=== PATIENT | male | born 1965 | race Caucasian/White ===

== ENCOUNTER 2022-03-14 18:03 | Inpatient (IN) ==
--- NOTE | 2022-03-14 18:20 | ED Triage Note ---
Date of Service March 14, 2022 History of Present Illness This patient was briefly evaluated while in triage. An abbreviated physical exam was performed. 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 Physical Exam VITALS: Vitals are noted on the nurse's note and reviewed by myself. GENERAL: This is a 56-year-old male, in no acute distress, well-developed well- nourished. SKIN: The skin was without rashes. NECK: Supple without nuchal rigidity. HEART: Regular rate and rhythm without murmurs gallops or rubs. LUNGS: Clear to auscultation bilaterally without wheezes, rales or rhonchi. NEURO: Patient was alert and oriented to person place and time. Initial orders for labs and / or imaging were placed and patient was placed in the waiting area until a bed is available. Please see further documentation for the full ED course.
[2022-03-14 19:02] LABS: Basophils # (auto) 0.04 K/uL (0-0.2); Basophils % (auto) 0.4 %; Eosinophils # (auto) 0.03 K/uL (0-0.50); Eosinophils % (auto) 0.3 %; Hematocrit (blood only) 42.4 % (40.1-51.0); Hemoglobin 14.4 g/dl (14.0-18.0); Immature Granulocytes # (auto) 0.05 K/uL (0.00-0.02); Immature Granulocytes % (auto) 0.5 %; Lymphocytes # (auto) 1.75 K/uL (1.2-3.4); Lymphocytes % (auto) 19.1 %; Mean Corpuscular Hemoglobin 32.3 pg (25.0-34.0); Mean Corpuscular Volume 95.1 fL (80.0-100.0); Mean Platelet Volume 9.3 fL (9.4-12.4); Monocytes # (auto) 1.09 K/uL (0.24-0.82); Monocytes % (auto) 11.9 %; Neutrophils % (auto) 67.8 %; Platelet Count 180 K/uL (130-400); RDW Coefficient of Variation 14.8 % (11.5-14.5); RDW Standard Deviation 51.4 fL (36.4-46.3); Red Blood Count 4.46 M/uL (4.63-6.08); White Blood Count 9.16 K/ul (4.8-10.8)
--- NOTE | 2022-03-14 19:08 | CT Scan Report ---
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 Acutely altered mental status TECHNIQUE: Multiple axial CT images of the head were obtained without contrast. A dose lowering tech nique was utilized adhering to the principles of ALARA. CT DOSE: 884.08 mGy.cm COMPARISON: None. FINDINGS: There is dilation of the lateral and third ventricles. Transverse dimension of the lateral ventricles measures up to 5 cm. The fourth ventricle appears normal. Involutional changes. A left frontal appro ach ventriculostomy catheter distal tip overlies the right lateral ventricle. White matter hypodensit ies are noted along with encephalomalacia of the right greater than left frontal lobes. Calcification s are noted within the lentiform nuclei. Extra-axial calcifications adjacent to the right frontal lob e. No acute intracranial hemorrhage, midline shift or acute territorial infarct. Extra-axial collecti ons, largest at the level of the frontal lobes measure up to 4 mm bilaterally containing fluid and fa t attenuation. 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 Right frontal craniotomy changes. The paranasal sinuses, mastoid air cells, and middle ear cavities are clear. IMPRESSION: 1. No acute intracranial hemorrhage or midline shift. 2. A ventriculostomy catheter is in place terminating within the right lateral ventricle. 3. There is dilation of the lateral and third ventricles which should be correlated with prior imagin g to exclude hydrocephalus. 4. Chronic subdural hematomas versus hygromas containing macroscopic fat. 5. Prior right frontal craniotomy. ACT 112: Negative or not required by law. The above report was generated using voice recognition software. It may contain grammatical, syntax o r spelling errors. Electronically signed by: Camilo Salgado M.D. 03/14/2022 7:05 PM
[2022-03-14 19:28] LABS: BUN Creatinine Ratio 13.9 (10-20); Bilirubin,Total 0.9 mg/dl (0.2-1.0); Calcium 9.5 mg/dl (8.5-10.1); Creatinine Clr Calc Pharmacy 100.8 ml/min; Est GFR (African American) 88.5 ml/min; Est GFR (Non-African American) 76.3 ml/min; Globulin 2.5 gm/dl (2.5-4.0); Potassium 4.3 mmol/L (3.5-5.1); Total Protein 7.5 gm/dl (6.0-8.3)
[2022-03-14] MEDS ORDERED: SODIUM CHLORIDE 0.9% 1000ML 1,000 ML IV ONE (21:20)
--- NOTE | 2022-03-14 21:29 | Emergency Department Note ---
Impression & Plan Bilateral leg pain, Pedal edema, DVT (deep venous thrombosis), S/P ACCOUNT ADMINISTRATOR shunt ED Provider Note NAME: MATT LIMON AGE: 56 SEX: M : 1965 ARRIVES VIA: Walk-In INFORMANT: [Patient][family] ED PROVIDER(S): [John Kim MD] CHIEF COMPLAINT: Leg pain HISTORY OF PRESENT ILLNESS: The patient is a 56-year-old male who has had about 24 hours of bilateral leg and thigh pain. He feels okay when he still but when he goes to do things, he has moderate discomfort. He has to sit down. Things started last night and they have continued today. He has not had fever, no cough or congestion or shortness of breath. No chest pain. No headache. The patient does have a history of DVT, he has a Virgil filter in, he is not anticoagulated. The patient has had 2 brain tumors surgically removed. He has a ACCOUNT ADMINISTRATOR shunt in place. The patient is scheduled for some EEGs this week. These have been ordered by his neurologist. As per the family, the patient has had some cognitive decline in the last month. This is why the EEGs are being performed. The neurologist mentioned the possibility of subclinical seizures. REVIEW OF SYSTEMS: See HPI for pertinent positives and negatives. A total of ten systems were reviewed and were otherwise negative. PMHx/PSHx: See Below SOCIAL HISTORY: See Below. PHYSICAL EXAM: GENERAL: Patient is in no acute distress. HEENT: Mucous membranes moist, no nasal congestion, no scleral icterus. NECK: No stridor, no adenopathy, no meningismus, trachea is midline. LUNGS: Clear to auscultation bilaterally, no wheeze, no rhonchi, breath sounds equal. HEART: Without murmurs gallops or rubs, regular rate and rhythm. ABDOMEN: Soft, nontender, bowel sounds positive, no peritonitis. EXTREMITIES: No cyanosis. The patient does have mild bilateral pedal edema. There are some chronic skin changes, no erythema NEUROLOGIC: Oriented x 3, no acute motor or sensory deficits, no focal weakness. SKIN: No rash, no jaundice, no diaphoresis. DIFFERENTIAL DIAGNOSIS: Electrolyte imbalance, anemia, infection, seizure, liver or renal failure, cellulitis, DVT, hydronephrosis, among others. EMERGENCY DEPARTMENT COURSE/PROCEDURES: ECG: Indication was weakness. The ECG shows a normal sinus rhythm with a rate of 84. There are inverted T waves seen across the anterior and lateral leads. Some LVH is present. There is no ST elevation, no PVCs. There is an old inferior infarct. The QTc is 434. No old ECGs available for comparison. Continuous Cardiac Monitoring: An order was placed for continuous cardiac monitoring. The monitor shows a rate of 91 with normal sinus rhythm. MEDICAL DECISION MAKING: There is no leukocytosis or concerning anemia. There is a normal platelet count. No renal failure or significant electrolyte abnormality. No concerning liver enzyme elevation. ECG shows a normal sinus rhythm with some nonspecific ST and T wave changes. No old ECGs to use for comparison. Cardiac enzyme testing x1 is not consistent with acute cardiac injury. The patient appears to be in a euthyroid state. COVID test returned negative. Brain CT showed no acute bleed or mass-effect. His ACCOUNT ADMINISTRATOR shunt was in position. Some fullness to his ventricles was noted. Bilateral lower extremity ultrasound shows bilateral acute DVTs, some superficial clot was also seen. Patient presents with bilateral leg pain. He has bilateral DVTs. He has a complicated and extensive past history. He does have a Virgil filter in place but he will need anticoagulation for the DVTs found today. I did speak with Dr. Villalba of neurology. He felt that anticoagulation would be safe despite his previous neurologic issues. I spoke with the patient and his family, I spoke with the casework manager. The on- call hospitalist was consulted. Hospitalization is indicated. The patient was given a GI cocktail, oral Protonix and IV Pepcid. These meds were given for some heartburn he experienced during his stay. He was given a liter of IV saline for hydration. He received IV Zofran for nausea. Past Med/Surg History Medical History H/O astrocytoma Seizure disorder Surgical History History of brain surgery History of cholecystectomy Family History Mother Unknown family medical history Father Unknown family medical history from patient questionaire Social History Smoking Status: Former smoker Preferred Language: Chilean Feels Safe at Home: Yes Allergies Allergies Allergy/AdvReac Type Severity Reaction Status Date / Time Iodinated Contrast Media Allergy Unknown nausea and Verified 03/15/22 00:08 vomiting No Known Drug Allergies Allergy Unknown Verified 03/15/22 00:08 Home Meds Home Medications Medication Instructions Recorded Confirmed simvastatin 40 mg tablet 40 mg PO QAM 05/02/20 03/15/22 famotidine 40 mg tablet 40 mg PO QPM 03/15/22 03/15/22 Previous Rx's Medication Instructions Recorded lamotrigine 100 mg tablet,extended 100 mg PO BID #60 tabs 01/03/22 release 24 hr carbamazepine 200 mg 200 mg PO BID 90 days #180 caps 02/13/22 capsule,extended release [id number] carbamazepine 300 mg 300 mg PO BID 90 days #180 caps 02/13/22 capsule,extended release [id number] lamotrigine 200 mg tablet,extended 400 mg PO BID 90 days #360 tabs 02/13/22 release 24 hr lacosamide 50 mg tablet (Vimpat) 50 mg PO BID #60 tabs 02/17/22 Results & Data (ED) Vital Signs Vital Signs - 24 hr 03/14/22 18:13 03/14/22 22:41 03/15/22 01:36 Temperature 36.4 C L Temperature Source Temporal Artery Scan Pulse Rate 91 H Pulse Rate [Finger] 93 H 81 Respiratory Rate 16 15 18 Respiratory Effort / Characteristics Non-Labored Spontaneous Respiratory Depth Normal Blood Pressure 138/96 Blood Pressure [Left Radial Artery] 142/96 H 150/89 H Blood Pressure Mean 110 Blood Pressure Mean [Left Radial Artery] 111 109 Blood Pressure Position Sitting Blood Pressure Position [Left Radial Artery] Lying Pulse Oximetry 99 100 95 Oxygen Delivery Method Room Air Room Air Room Air Sepsis Recent Fever Within 48 Hours No Sepsis New/Unexplained Change in Mental Status No Sepsis Action Taken by Nursing No Action Required Home Medications Current Medication List: was personally reviewed by me Laboratory Data Attestation: I reviewed the patient's lab results. Result diagrams: 03/14/22 18:35 03/14/22 18:35 Lab Results 03/14/22 03/14/22 03/14/22 Range/Units 18:35 18:35 18:35 WBC 9.16 (4.8-10.8) K/ul RBC 4.46 L (4.63-6.08) M/uL Hgb 14.4 (14.0-18.0) g/dl Hct 42.4 (40.1-51.0) % MCV 95.1 (80.0-100.0) fL MCH 32.3 (25.0-34.0) pg MCHC 34.0 (32.0-36.0) g/dL RDW Std Deviation 51.4 H (36.4-46.3) fL RDW Coeff of Sudhir 14.8 H (11.5-14.5) % Plt Count 180 (130-400) K/uL MPV 9.3 L (9.4-12.4) fL Immature Gran % (Auto) 0.5 % Neut % (Auto) 67.8 % Lymph % (Auto) 19.1 % Claiborne % (Auto) 11.9 % Eos % (Auto) 0.3 % Baso % (Auto) 0.4 % Neut # (Auto) 6.20 (1.4-6.5) K/uL Lymph # (Auto) 1.75 (1.2-3.4) K/uL Cla[place]orne # (Auto) 1.09 H (0.24-0.82) K/uL Eos # (Auto) 0.03 (0-0.50) K/uL Baso # (Auto) 0.04 (0-0.2) K/uL Immature Gran # (Auto) 0.05 H (0.00-0.02) K/uL Sodium 137 (136-145) mmol/L Potassium 4.3 (3.5-5.1) mmol/L Chloride 98 (98-107) mmol/L Carbon Dioxide 29 (21-32) mmol/L Anion Gap 10 (3-11) BUN 15 (6-23) mg/dl Creatinine 1.08 (0.6-1.4) mg/dl Est Cr Clr Drug Dosing 100.8 ml/min Est GFR ( Amer) 88.5 ml/min Est GFR (Non-Af Amer) 76.3 ml/min BUN/Creatinine Ratio 13.9 (10-20) Glucose 96 (70-99(Fasting)) mg/dl Calcium 9.5 (8.5-10.1) mg/dl Magnesium 2.0 (1.7-2.4) mg/dl Total Bilirubin 0.9 (0.2-1.0) mg/dl AST 15 (13-39) U/L ALT 22 (7-52) U/L Alkaline Phosphatase 84 (34-104) U/L Troponin I High Sens (0-20) pg/ml Total Protein 7.5 (6.0-8.3) gm/dl Albumin 5.0 (3.4-5.0) gm/dl Globulin 2.5 (2.5-4.0) gm/dl Albumin/Globulin Ratio 2.0 (0.9-2) TSH 2.971 (0.300-4.500) uIu/ml SARS-CoV-2, RNA, NAAT (NEGATIVE) 03/14/22 03/14/22 Range/Units 18:35 23:48 WBC (4.8-10.8) K/ul RBC (4.63-6.08) M/uL Hgb (14.0-18.0) g/dl Hct (40.1-51.0) % MCV (80.0-100.0) fL MCH (25.0-34.0) pg MCHC (32.0-36.0) g/dL RDW Std Deviation (36.4-46.3) fL RDW Coeff of Sudhir (11.5-14.5) % Plt Count (130-400) K/uL MPV (9.4-12.4) fL Immature Gran % (Auto) % Neut % (Auto) % Lymph % (Auto) % Claiborne % (Auto) % Eos % (Auto) % Baso % (Auto) % Neut # (Auto) (1.4-6.5) K/uL Lymph # (Auto) (1.2-3.4) K/uL Cla[place]orne # (Auto) (0.24-0.82) K/uL Eos # (Auto) (0-0.50) K/uL Baso # (Auto) (0-0.2) K/uL Immature Gran # (Auto) (0.00-0.02) K/uL Sodium (136-145) mmol/L Potassium (3.5-5.1) mmol/L Chloride (98-107) mmol/L Carbon Dioxide (21-32) mmol/L Anion Gap (3-11) BUN (6-23) mg/dl Creatinine (0.6-1.4) mg/dl Est Cr Clr Drug Dosing ml/min Est GFR ( Amer) ml/min Est GFR (Non-Af Amer) ml/min BUN/Creatinine Ratio (10-20) Glucose (70-99(Fasting)) mg/dl Calcium (8.5-10.1) mg/dl Magnesium (1.7-2.4) mg/dl Total Bilirubin (0.2-1.0) mg/dl AST (13-39) U/L ALT (7-52) U/L Alkaline Phosphatase (34-104) U/L Troponin I High Sens 3.4 (0-20) pg/ml Total Protein (6.0-8.3) gm/dl Albumin (3.4-5.0) gm/dl Globulin (2.5-4.0) gm/dl Albumin/Globulin Ratio (0.9-2) TSH (0.300-4.500) uIu/ml SARS-CoV-2, RNA, NAAT NEGATIVE (NEGATIVE) Administered Medications Discontinued Medications Al Hydrox/Mg Hydrox/Simethicone (Gi Cocktail Ed Use) 1 dose PO ONE ONE Stop: 03/14/22 23:06 Last Admin: 03/14/22 23:40 Dose: 1 dose Documented By: MAURICE Famotidine (Famotidine 20 Mg Tab) 20 mg PO NOW ONE Stop: 03/14/22 23:06 Last Admin: 03/14/22 23:40 Dose: 20 mg Documented By: MAURICE Sodium Chloride (Nss 1000ml) 1,000 mls @ 999 mls/hr IV .Q1H1M ONE Stop: 03/14/22 22:20 Last Infusion: 03/15/22 01:32 Dose: 0 mls/hr Documented By: Admin: 03/14/22 23:43 Dose: 999 mls/hr Documented By: MAURICE Ioversol (Optiray 320 125ml) 120 ml IV ONCE ONE Stop: 03/15/22 00:45 Last Admin: 03/15/22 00:44 Dose: 120 ml Documented By: FIFI Ondansetron HCl (Ondansetron Inj 2 Mg/Ml 2 Ml Vial) 4 mg IV NOW STA Stop: 03/14/22 23:46 Last Admin: 03/14/22 23:59 Dose: 4 mg Documented By: MAURICE Pantoprazole Sodium (Pantoprazole 40 Mg Tab) 40 mg PO NOW STA Stop: 03/14/22 23:06 Last Admin: 03/14/22 23:40 Dose: 40 mg Documented By: MAURICE Imaging Data Radiologist's Impression: Venous Doppler Study 03/14/22 18:16 BILATERAL LOWER EXTREMITY VENOUS DOPPLER HISTORY: Acute pain and swelling of the lower legs B/l leg pain, hx dvt COMPARISON STUDY: None. FINDINGS: RIGHT: Occlusive/partially occlusive thrombi noted within the common femoral and upper aspect of the greater saphenous vein. Linear echogenic thrombus within the popliteal vein is likely chronic and appears to be partially occlusive. Reversal of flow noted within the profunda femoris. Possible chronic thrombi within the greater saphenous vein at the level of the thigh which is partially occlusive. Thrombus is also noted within the right iliac vein. LEFT: Partially occlusive thrombus noted within the common femoral vein and upper aspect of the greater saphenous vein. Linear echogenic nonocclusive/partially occlusive thrombi within the superficial femoral and popliteal veins, likely chronic. IMPRESSION: Bilateral deep and superficial venous thrombi as above. ACT 112: Negative or not required by law. Electronically signed by: Camilo Salgado M.D. 03/14/2022 10:[address] 03/14/22 18:19 CT head/brain wo con CLINICAL HISTORY: 56 years-old Male with Confusion, has ACCOUNT ADMINISTRATOR shunt. Acutely altered mental status TECHNIQUE: Multiple axial CT images of the head were obtained without contrast. A dose lowering technique was utilized adhering to the principles of ALARA. CT DOSE: 884.08 mGy.cm COMPARISON: None. FINDINGS: There is dilation of the lateral and third ventricles. Transverse dimension of the lateral ventricles measures up to 5 cm. The fourth ventricle appears normal. Involutional changes. A left frontal approach ventriculostomy catheter distal tip overlies the right lateral ventricle. White matter hypodensities are noted along with encephalomalacia of the right greater than left frontal lobes. Calcifications are noted within the lentiform nuclei. Extra-axial calcifications adjacent to the right frontal lobe. No acute intracranial hemorrhage, midline shift or acute territorial infarct. Extra-axial collections, largest at the level of the frontal lobes measure up to 4 mm bilaterally containing fluid and fat attenuation. 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 Right frontal craniotomy changes. The paranasal sinuses, mastoid air cells, and middle ear cavities are clear. IMPRESSION: 1. No acute intracranial hemorrhage or midline shift. 2. A ventriculostomy catheter is in place terminating within the right lateral ventricle. 3. There is dilation of the lateral and third ventricles which should be correlated with prior imaging to exclude hydrocephalus. 4. Chronic subdural hematomas versus hygromas containing macroscopic fat. 5. Prior right frontal craniotomy. ACT 112: Negative or not required by law. The above report was generated using voice recognition software. It may contain grammatical, syntax or spelling errors. Electronically signed by: Camilo Salgado M.D. 03/14/2022 7:05 PM Discharge Plan Visit Data Chief Complaint: Leg Injury/Pain Stated Complaint: TROUBLE WALKING, STANDING, LEG PAIN ED Provider: John Kim Discharge Problem: Bilateral leg pain, Pedal edema, DVT (deep venous thrombosis), S/P ACCOUNT ADMINISTRATOR shunt Patient Disposition: Admitted As Inpatient Condition: Fair Forms Stand Alone Forms: [facility] Prescriptions Prescriptions: No Action simvastatin 40 mg tablet 40 mg PO QAM lamotrigine 100 mg tablet extended release 24hr 100 mg PO BID Qty: 60 5RF lamotrigine 200 mg tablet extended release 24hr 400 mg PO BID 90 Days Qty: 360 0RF carbamazepine 200 mg capsule, ER multiphase 12 hr 200 mg PO BID 90 Days Qty: 180 0RF Rx Instructions: take along with 300mg capsule BID for a total of 500mg BID carbamazepine 300 mg capsule, ER multiphase 12 hr 300 mg PO BID 90 Days Qty: 180 0RF Rx Instructions: take along with 200mg capsule BID for a total of 500mg BID lacosamide [Vimpat] 50 mg tablet 50 mg PO BID Qty: 60 3RF famotidine 40 mg tablet 40 mg PO QPM Referrals Referrals: Shari Alarcon DO [Primary Care Provider] -
--- NOTE | 2022-03-14 22:56 | Ultrasound Report ---
BILATERAL LOWER EXTREMITY VENOUS DOPPLER HISTORY: Acute pain and swelling of the lower legs B/l leg pain, hx dvt COMPARISON STUDY: None. FINDINGS: RIGHT: Occlusive/partially occlusive thrombi noted within the common femoral and upper aspect of the greate r saphenous vein. Linear echogenic thrombus within the popliteal vein is likely chronic and appears t o be partially occlusive. Reversal of flow noted within the profunda femoris. Possible chronic thromb i within the greater saphenous vein at the level of the thigh which is partially occlusive. Thrombus is also noted within the right iliac vein. LEFT: Partially occlusive thrombus noted within the common femoral vein and upper aspect of the greater sap henous vein. Linear echogenic nonocclusive/partially occlusive thrombi within the superficial femoral and popliteal veins, likely chronic. IMPRESSION: Bilateral deep and superficial venous thrombi as above. ACT 112: Negative or not required by law. Electronically signed by: Camilo Salgado M.D. 03/14/2022 10:54 PM
[2022-03-14] MEDS ORDERED: GI COCKTAIL ED USE PO ONE (23:05)
[2022-03-14] MEDS ORDERED: PANTOprazole 40 MG TAB PO STA (23:05)
[2022-03-14] MEDS ORDERED: FAMOTIDINE 20 MG TAB PO ONE (23:05)
[2022-03-14] MEDS ORDERED: ONDANSETRON INJ 2 MG/ML 2 ML VIAL IV STA (23:45)
[2022-03-15] MEDS ORDERED: OPTIRAY 320 125ml IV ONE (00:44)
--- NOTE | 2022-03-15 02:17 | History & Physical Report ---
Date of Service March 15, 2022 Assessment & Plan (1) Acute deep vein thrombosis of both lower extremities: Plan: Acute on chronic DVT bilateral lower extremities/presence of IVC filter/IVC thrombosis/IVC filter present- The patient had been told in the past that he was not to be on anticoagulation due to his previous intracranial surgeries, however, this was discussed by the ED with neurology and they felt that anticoagulation could be performed if needed. CTA chest does not find failure of the IVC filter that has resulted in PEs, although that does not rule out the possibility of paradoxic embolus and CVA. Starting anticoagulation this evening is not urgent, and can be started in the morning once additional work-up is performed. (2) Chronic deep vein thrombosis of both lower extremities: Plan: See above (3) Cognitive decline: Plan: The patient's notes that he has had some gradual decline in functioning intellectually over the past month, and plans had been been made to have an EEG performed due to appearance of a couple small seizures during this time. He was also due to have an MRI performed for his routine surveillance. MRI brain with and without contrast has been ordered. EEG will not be able to be performed over the weekend unless neurology can get arranged. Due to his history of DVTs that are now worsening, it is possible that he may have developed a paradoxic embolus and stroke affecting his symptoms in the interim. We will order an MRI of the brain as noted, in the morning we will order an ec hocardiogram with Doppler to assess for possible paradoxic embolus source Anticoagulation can be initiated at that time, if EMILEE is not deemed to be necessary. (4) S/P NUCLEAR RADIOLOGIST shunt: (5) H/O astrocytoma: (6) Seizure disorder: Plan: Continue carbamazepine, lacosamide and lamotrigine Consult neurology if needed (7) Hyperlipidemia: Plan: Continue simvastatin (8) GERD (gastroesophageal reflux disease): Plan: Continue famotidine (9) IVC thrombosis: Plan: See above (10) Presence of IVC filter: Plan: See above History of Present Illness Chief Complaint: The patient presents to the emergency department with complaint of 24 hours of bilateral lower extremity pain, that is worse with activity, and improves when sitting down. The patient's notes that he has had some gradually declining mental function over the past month, and has had 2 small seizures during that interval as well. He does follow with periodic surveillance MRIs for his previous brain surgeries, with a next due in a few weeks. After having spoken with their local neurologist, he was to be getting an EEG performed to assess for partial seizure activity in the near future. Due to worsening lower extremity pain, he presents to the ED for assessment as noted Primary Care Provider: Shari Alarcon DO The patient is a 56-year-old male with a past medical history including DVT, astrocytoma, NUCLEAR RADIOLOGIST shunt, seizure disorder, GERD and hyperlipidemia. He had an IVC filter placed in 1997 due to lower extremity DVTs that occurred associated with brain tumor. He was advised at that time to not undergo any coagulation due to concerns regarding intracranial bleeding that might occur following his brain surgeries and placement of shunt. Over the past 24 hours patient is noted significant lower extremity discomfort, pain and cramping, and swelling slightly worse than usual. He underwent venous Dopplers in the emergency department which showed acute on chronic DVTs. CT of abdomen the pelvis, which showed an IVC filter, with complete thrombosis of the lower IVC, and occlusion of the left common and internal iliac veins. CTA chest was negative for PE Allergies Allergy/AdvReac Type Severity Reaction Status Date / Time Iodinated Contrast Media Allergy Unknown nausea and Verified 03/15/22 00:08 vomiting No Known Drug Allergies Allergy Unknown Verified 03/15/22 00:08 Home Medications Medication Instructions Recorded Confirmed Type simvastatin 40 mg tablet 40 mg PO QAM 05/02/20 03/15/22 History lamotrigine 100 mg tablet,extended 100 mg PO BID #60 tabs 01/03/22 03/15/22 Rx release 24 hr carbamazepine 200 mg 200 mg PO BID 90 days #180 caps 02/13/22 03/15/22 Rx capsule,extended release [id number] carbamazepine 300 mg 300 mg PO BID 90 days #180 caps 02/13/22 03/15/22 Rx capsule,extended release [id number] lamotrigine 200 mg tablet,extended 400 mg PO BID 90 days #360 tabs 02/13/22 03/15/22 Rx release 24 hr lacosamide 50 mg tablet (Vimpat) 50 mg PO BID #60 tabs 02/17/22 03/15/22 Rx famotidine 40 mg tablet 40 mg PO QPM 03/15/22 03/15/22 History Past Med/Surg History Medical History (Updated 03/15/22 @ 05:29 by Raj Hernandez MD) GERD (gastroesophageal reflux disease) H/O astrocytoma Hyperlipidemia Seizure disorder Surgical History (Updated 03/15/22 @ 01:49 by John Kim MD) History of brain surgery History of cholecystectomy Family History Mother Unknown family medical history Father Unknown family medical history from patient questionaire Social History Smoking Status: Former smoker Preferred Language: Maltese Feels Safe at Home: Yes Review of Systems Review of Systems: The patient denies chest pain, palpitations, shortness of breath, dyspnea on exertion, cough, sore throat, fevers, chills, sweats, nausea, vomiting, diarrhea , constipation, abdominal pain, pelvic pain, blood in urine or stool, dysuria, urinary frequency or urgency, lightheadedness, dizziness, headache, memory loss, loss of consciousness, rash, abnormal bruising or bleeding, imbalance, focal or generalized weakness, numbness or tingling in arms, generalized arthralgias or myalgias, back or neck pain, or night sweats. The review of systems is otherwise negative other than for that already noted above, and at least 10 systems have been reviewed. Physical Exam Physical Exam: The patient is awake, alert and oriented 3, lying in bed and in no acute distress. HEENT--PERRL, EOMI, mucous membranes and oropharynx normal. Healed surgical lines in skull noted Neck--supple. No JVD. No bruits. Thyroid normal, trachea midline, no adenopathy . Heart--normal S1 and S2. No murmurs, rubs or gallops. Lungs--clear bilaterally, no respiratory distress, no accessory muscle use. Abdomen--normal bowel sounds and soft. Nontender. Nondistended, no hernias or masses, no organomegaly. Extremities--no cyanosis or clubbing. No edema. There are good distal pulses b/l. Dermatologic--normal skin turgor, normal color, no abnormal lymph nodes, no rash. Neurologic--cranial nerves II through XII grossly intact. Rheumatologic--normal range of motion. Psychiatric--normal affect. Results & Data Results & Data ([facility]) Vital Signs (Past 12 Hours) Vital Signs Temp Pulse Pulse Resp BP BP Pulse Ox 03/15/22 01:36 81 18 150/89 H 95 03/14/22 22:41 93 H 15 142/96 H 100 03/14/22 18:13 36.4 C L 91 H 16 138/96 99 O2 Del Method 03/15/22 01:36 Room Air 03/14/22 22:41 Room Air 03/14/22 18:13 Room Air Laboratory Results Laboratory Results WBC 9.16 K/ul (4.8-10.8) 03/14/22 18:35 RBC 4.46 M/uL (4.63-6.08) L 03/14/22 18:35 Hgb 14.4 g/dl (14.0-18.0) 03/14/22 18:35 Hct 42.4 % (40.1-51.0) 03/14/22 18:35 MCV 95.1 fL (80.0-100.0) 03/14/22 18:35 MCH 32.3 pg (25.0-34.0) 03/14/22 18:35 MCHC 34.0 g/dL (32.0-36.0) 03/14/22 18:35 RDW Std Deviation 51.4 fL (36.4-46.3) H 03/14/22 18:35 RDW Coeff of Sudhir 14.8 % (11.5-14.5) H 03/14/22 18:35 Plt Count 180 K/uL (130-400) 03/14/22 18:35 MPV 9.3 fL (9.4-12.4) L 03/14/22 18:35 Immature Gran % (Auto) 0.5 % 03/14/22 18:35 Neut % (Auto) 67.8 % 03/14/22 18:35 Lymph % (Auto) 19.1 % 03/14/22 18:35 Wythe % (Auto) 11.9 % 03/14/22 18:35 Eos % (Auto) 0.3 % 03/14/22 18:35 Baso % (Auto) 0.4 % 03/14/22 18:35 Neut # (Auto) 6.20 K/uL (1.4-6.5) 03/14/22 18:35 Lymph # (Auto) 1.75 K/uL (1.2-3.4) 03/14/22 18:35 Wythe # (Auto) 1.09 K/uL (0.24-0.82) H 03/14/22 18:35 Eos # (Auto) 0.03 K/uL (0-0.50) 03/14/22 18:35 Baso # (Auto) 0.04 K/uL (0-0.2) 03/14/22 18:35 Immature Gran # (Auto) 0.05 K/uL (0.00-0.02) H 03/14/22 18:35 Sodium 137 mmol/L (136-145) 03/14/22 18:35 Potassium 4.3 mmol/L (3.5-5.1) 03/14/22 18:35 Chloride 98 mmol/L (98-107) 03/14/22 18:35 Carbon Dioxide 29 mmol/L (21-32) 03/14/22 18:35 Anion Gap 10 (3-11) 03/14/22 18:35 BUN 15 mg/dl (6-23) 03/14/22 18:35 Creatinine 1.08 mg/dl (0.6-1.4) 03/14/22 18:35 Est Cr Clr Drug Dosing 100.8 ml/min 03/14/22 18:35 Est GFR ( Amer) 88.5 ml/min 03/14/22 18:35 Est GFR (Non-Af Amer) 76.3 ml/min 03/14/22 18:35 BUN/Creatinine Ratio 13.9 (10-20) 03/14/22 18:35 Glucose 96 mg/dl (70-99(Fasting)) 03/14/22 18:35 Calcium 9.5 mg/dl (8.5-10.1) 03/14/22 18:35 Magnesium 2.0 mg/dl (1.7-2.4) 03/14/22 18:35 Total Bilirubin 0.9 mg/dl (0.2-1.0) 03/14/22 18:35 AST 15 U/L (13-39) 03/14/22 18:35 ALT 22 U/L (7-52) 03/14/22 18:35 Alkaline Phosphatase 84 U/L (34-104) 03/14/22 18:35 Troponin I High Sens 3.4 pg/ml (0-20) 03/14/22 18:35 Total Protein 7.5 gm/dl (6.0-8.3) 03/14/22 18:35 Albumin 5.0 gm/dl (3.4-5.0) 03/14/22 18:35 Globulin 2.5 gm/dl (2.5-4.0) 03/14/22 18:35 Albumin/Globulin Ratio 2.0 (0.9-2) 03/14/22 18:35 TSH 2.971 uIu/ml (0.300-4.500) 03/14/22 18:35 SARS-CoV-2, RNA, NAAT NEGATIVE (NEGATIVE) 03/14/22 23:48 Impressions Venous Doppler Study 03/14/22 18:16 BILATERAL LOWER EXTREMITY VENOUS DOPPLER HISTORY: Acute pain and swelling of the lower legs B/l leg pain, hx dvt COMPARISON STUDY: None. FINDINGS: RIGHT: Occlusive/partially occlusive thrombi noted within the common femoral and upper aspect of the greater saphenous vein. Linear echogenic thrombus within the popliteal vein is likely chronic and appears to be partially occlusive. Reversal of flow noted within the profunda femoris. Possible chronic thrombi within the greater saphenous vein at the level of the thigh which is partially occlusive. Thrombus is also noted within the right iliac vein. LEFT: Partially occlusive thrombus noted within the common femoral vein and upper aspect of the greater saphenous vein. Linear echogenic nonocclusive/partially occlusive thrombi within the superficial femoral and popliteal veins, likely chronic. IMPRESSION: Bilateral deep and superficial venous thrombi as above. ACT 112: Negative or not required by law. Electronically signed by: Camilo Salgado M.D. 03/14/2022 10:[address] 03/14/22 18:19 CT head/brain wo con CLINICAL HISTORY: 56 years-old Male with Confusion, has NUCLEAR RADIOLOGIST shunt. Acutely altered mental status TECHNIQUE: Multiple axial CT images of the head were obtained without contrast. A dose lowering technique was utilized adhering to the principles of ALARA. CT DOSE: 884.08 mGy.cm COMPARISON: None. FINDINGS: There is dilation of the lateral and third ventricles. Transverse dimension of the lateral ventricles measures up to 5 cm. The fourth ventricle appears normal. Involutional changes. A left frontal approach ventriculostomy catheter distal tip overlies the right lateral ventricle. White matter hypodensities are noted along with encephalomalacia of the right greater than left frontal lobes. Calcifications are noted within the lentiform nuclei. Extra-axial calcifications adjacent to the right frontal lobe. No acute intracranial hemorrhage, midline shift or acute territorial infarct. Extra-axial collections, largest at the level of the frontal lobes measure up to 4 mm bilaterally containing fluid and fat attenuation. 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 Right frontal craniotomy changes. The paranasal sinuses, mastoid air cells, and middle ear cavities are clear. IMPRESSION: 1. No acute intracranial hemorrhage or midline shift. 2. A ventriculostomy catheter is in place terminating within the right lateral ventricle. 3. There is dilation of the lateral and third ventricles which should be correlated with prior imaging to exclude hydrocephalus. 4. Chronic subdural hematomas versus hygromas containing macroscopic fat. 5. Prior right frontal craniotomy. ACT 112: Negative or not required by law. The above report was generated using voice recognition software. It may contain grammatical, syntax or spelling errors. Electronically signed by: Camilo Salgado M.D. 03/14/2022 7:05 PM Code Status & VTE Plan Code Status Full code VTE Prophylaxis Plan VTE Prophylaxis will be ordered: Yes PG Care Time/CCT Total # of Minutes Spent Total Time Spent with Patient: Total time spent is greater than 50% in coordination of care (as documented) at patient's floor/unit and/or counseling patient: Coding Level of Care Code INT OBSERVATION CARE 70M LVL 3 (25 - SIGNIFICANT, SEPARATELY IDENTIFIABLE ) Diagnoses Acute deep vein thrombosis of both lower extremities I82.403 Chronic deep vein thrombosis of both lower extremities I82.503 Cognitive decline R41.89 S/P NUCLEAR RADIOLOGIST shunt Z98.2 H/O astrocytoma Z85.841 Seizure disorder G40.909 Hyperlipidemia E78.5 GERD (gastroesophageal reflux disease) K21.9 IVC thrombosis I82.220 Presence of IVC filter Z95.828 Time Spent (min) 55
[2022-03-15] MEDS: ACETAMINOPHEN 325 MG TAB PO PRN (06:33)
--- NOTE | 2022-03-15 07:09 | CT Scan Report ---
CHEST CTA for PULMONARY ARTERIES CT DOSE: HISTORY: Shortness of breath. TECHNIQUE: Multiaxial CT images of the chest were performed following the intravenous administration of contrast to evaluate the pulmonary arteries. Maximal intensity projection images were also obtaine d. A dose lowering technique was utilized adhering to the principles of ALARA. COMPARISON STUDY: None. FINDINGS: No evidence for an aortic dissection or pulmonary embolus. The heart is mildly enlarged. No mediastinal or hilar lymphadenopathy. No pleural or pericardial effusions. Normal esophagus. Partial ly visualized ventriculoperitoneal shunt seen within the left anterior chest wall. No fractures withi n the visualized osseous structures. No pneumothorax. An 8 mm nodule within the left lower lobe on im age 89. A few bibasilar linear densities consistent with subsegmental atelectasis. Otherwise, no foca l lung consolidations to suggest pneumonia. IMPRESSION: 1. No evidence for pulmonary embolus. 2. An 8 mm nodule within the left lower lobe. Please refer to below summary of Fleischner criteria recommendations for follow-up of incidental CT n odules (Mervin Peralta, Guidelines for management of small pulmonary nodules detected on CT scans: A sta tement from the Fleischner Society, Radiology 237: [phone].) SOLID NODULES Solitary nodule size: <6 mm * Low risk patients: no follow-up needed * high risk patients: optional CT at 12 months Solitary nodule size: 6-8 mm * Low risk patients: follow-up at 6-12 months, then consider further follow-up at 18-24 months * high risk patients: initial follow-up CT at 6-12 months and then at 18-24 months if no change Solitary nodule size: >8 mm * either low or high risk patients - consider follow-up CT at 3 months, and/or CT-PET, and/or biopsy Multiple nodules size: <6 mm * Low risk patients: no routine follow-up * high risk patients: optional CT at 12 months Multiple nodules size: 6-8 mm * Low risk patients: follow-up at 3-6 months, then consider further follow-up at 18-24 months * high risk patients: follow-up at 3-6 months, then at 18-24 months if no change Multiple nodules size: >8 mm * Low risk patients: follow-up at 3-6 months, then consider further follow-up at 18-24 months * high risk patients: follow-up at 3-6 months, then at 18-24 months if no change Note: newly detected indeterminate nodule in persons 35 years of age or older. * Low risk patients: minimal or absent history of smoking and/or other known risk factors * high risk patients: history of smoking or of other known risk factors (e.g. first degree relative with lung cancer, or exposure to asbestos, radon, uranium) * if a nodule up to 8 mm is partly solid or is ground glass further follow-up is required after 24 m onths to exclude possible slow growing adenocarcinoma ([facility]) SUBSOLID NODULES Solitary pure ground-glass nodule * nodule size <6 mm - no CT follow-up required * nodule size >=6 mm - follow-up CT at 6-12 months, then every 2 years until 5 years Solitary part-solid nodule * nodule size <6 mm - no CT follow-up required * nodule size >=6 mm - follow-up CT at 3-6 months. If unchanged, and solid component remains <6 mm, then annual follow-up for 5 years Multiple subsolid nodules * nodule size <6 mm - follow-up CT at 3-6 months, consider further follow-up at 2 and 4 years if sta ble * nodule size >=6 mm - follow-up CT at 3-6 months, subsequent management based on the most suspiciou s nodule(s) ACT 112: Negative or not required by law. Electronically signed by: Taz Shields M.D. 03/15/2022 7:07 AM
--- NOTE | 2022-03-15 07:30 | CT Scan Report ---
ABDOMEN AND PELVIS CT WITH IV CONTRAST CT DOSE: 1328.21 mGy.cm HISTORY: Concern for IVC filter failure TECHNIQUE: Multiaxial CT images of the abdomen and pelvis were performed following the use of intrave nous contrast. A dose lowering technique was utilized adhering to the principles of ALARA. COMPARISON STUDY: None. FINDINGS: No pneumoperitoneum. No pneumatosis. There are old, healed left-sided rib fractures. No acu te fractures identified. The heart is mildly enlarged. Mild hepatic steatosis. The main portal vein i s patent. Prior cholecystectomy. The spleen, adrenal glands, and pancreas are unremarkable. There are punctate bilateral renal calculi. There is a subcentimeter cysts within the left kidney. No ureteral stones. No hydronephrosis. Mild bladder wall thickening with adjacent fat stranding. There is a vent riculoperitoneal shunt which terminates in the right lower quadrant. No evidence for a granuloma at t he tip. Normal caliber abdominal aorta. There is no IVC filter noted. There is fat stranding surround ing the IVC and bilateral iliac veins, right greater than the left. The infrarenal IVC and IVC filter are mildly distended and filled with clot. There is also thrombus seen within the bilateral common a nd external iliac veins, right greater than left. The left iliac veins are small in caliber suggestin g chronic thrombus. There is thrombus also identified within the right common femoral and visualized superficial femoral veins. Multiple varicosities of the deep pelvis likely due to the iliac/IV see ve in thrombus. Colonic diverticulosis. No evidence for acute diverticulitis. No bowel wall thickening o r obstruction. Normal appendix. IMPRESSION: 1. An IVC filter is in place. There is thrombus within the infrarenal IVC which surrounds the IVC hope ter as well as the bilateral iliac veins, right greater than left. The right iliac vein thrombus is l ikely acute and the left iliac vein thrombus may be chronic. There is also thrombus identified within the right femoral veins. 2. Bilateral nephrolithiasis. No hydronephrosis. 3. No bowel wall thickening or obstruction. 4. Normal appendix. ACT 112: Negative or not required by law. Electronically signed by: Taz Shields M.D. 03/15/2022 7:27 AM
[2022-03-15] MEDS: LACOSAMIDE 50 MG TABLET PO SCH ×2 (07:41→21:04)
[2022-03-15] MEDS: SIMVASTATIN 40 MG TAB PO SCH (07:41)
[2022-03-15] MEDS ORDERED: NON-FORMULARY MEDICATION (Lamotrigine 200 mg tablet extended release 24hr) PO SCH (09:00)
--- NOTE | 2022-03-15 09:37 | Electrocardiogram Report ---
Test Reason : Blood Pressure : / mmHG Vent. Rate : 084 BPM Atrial Rate : 084 BPM P-R Int : 162 ms QRS Dur : 090 ms QT Int : 368 ms P-R-T Axes : 078 -08 008 degrees QTc Int : 434 ms Normal sinus rhythm Nonspecific T wave abnormality Anterior leads Abnormal ECG No previous ECGs available Confirmed by Brandon Panda ([id number]) on 03/15/2022 9:36:52 AM Referred By: REFERRED SELF Confirmed By:Brandon Panda
[2022-03-15] MEDS ORDERED: Heparin IV Adult Wt-Based Low-Dose *NO* Bolus Protocol IV SCH (12:00)
[2022-03-15] MEDS: HEPARIN SODIUM/DEXTROSE 25,000 UNITS/500 ML BAG IV SCH (12:19)
[2022-03-15 12:36] LABS: Partial Thromboplastin Ratio 0.9; Partial Thromboplastin Time 23.7 Seconds (21.0-31.0)
[2022-03-15 12:58] LABS: Hematocrit (blood only) 37.8 % (40.1-51.0); Hemoglobin 12.8 g/dl (14.0-18.0); Mean Corpuscular Hemoglobin 32.2 pg (25.0-34.0); Mean Corpuscular Hgb Conc 33.9 g/dL (32.0-36.0); Mean Corpuscular Volume 95.2 fL (80.0-100.0); Mean Platelet Volume 9.4 fL (9.4-12.4); Platelet Count 152 K/uL (130-400); RDW Coefficient of Variation 14.9 % (11.5-14.5); RDW Standard Deviation 52.1 fL (36.4-46.3); Red Blood Count 3.97 M/uL (4.63-6.08); White Blood Count 7.86 K/ul (4.8-10.8)
[2022-03-15 12:59] LABS: Basophils # (auto) 0.03 K/uL (0-0.2); Basophils % (auto) 0.4 %; Eosinophils # (auto) 0.07 K/uL (0-0.50); Eosinophils % (auto) 0.9 %; Immature Granulocytes # (auto) 0.03 K/uL (0.00-0.02); Immature Granulocytes % (auto) 0.4 %; Lymphocytes # (auto) 1.32 K/uL (1.2-3.4); Lymphocytes % (auto) 16.8 %; Monocytes # (auto) 0.89 K/uL (0.24-0.82); Monocytes % (auto) 11.3 %; Neutrophils # (auto) 5.52 K/uL (1.4-6.5); Neutrophils % (auto) 70.2 %; Polychromasia 1+
--- NOTE | 2022-03-15 17:45 | History & Physical Bridge Note ---
Date of Service March 15, 2022 History & Physical Bridge Note I have examined the patient, reviewed the History & Physical and in the interval since the performance of the History & Physical I have noted the following changes of clinical significance: Primary reason for presentation ambulatory dysfunction, secondary to lower extremity pain; evaluation revealed acute right iliac DVT, clotting surrounding the IVC filter; history of DVT around 1997 at which time it was deemed anticoagulation was contraindicated on account of astrocytoma and IVC filter was placed. CT scan raised the question of chronic subdurals; discussed with his neurosurgeon at [facility] who felt risk of bleeding intracranially low but recommended initiate lower dose of heparin protocol without bolus and that he be transferred to [facility] so that he can be at a place where there is neurosurgery service; in addition, mentioned recent decline in cognitive status, particularly 3 to 4 weeks and we discussed the possibility of subclinical seizures and a potential need of 24- hour EEG monitoring-not available here. Note at present we do not have vascular surgery coverage here over the weekend. Spoke to hospitalist at [facility] and they did not accept since they discussed the case with their interventional radiologist and vascular surgeon and they felt they could not handle the clot surrounding the IVC filter and felt he should be at a place with tertiary vascular surgery services; called [facility] via med call and hospitalist there wanted prior discussion with vascular surgery thereawaiting that call back. Heparin drip initiated. To note, while right lower extremity swelling currently no evidence of PCD. Overall, it is very possible that ultimate treatment may not change from what we can undertake here but we do not know that without further opinions.
--- NOTE | 2022-03-15 17:50 | Discharge Summary ---
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 He had an IVC filter placed in 1997 due to lower extremity DVTs that occurred associated with brain tumor. He was advised at that time to not undergo any coagulation due to concerns regarding intracranial bleeding that might occur following his brain surgeries and placement of shunt. Over the past 24 hours patient is noted significant lower extremity discomfort, pain and cramping, and swelling slightly worse than usual. He underwent venous Dopplers in the emergency department which showed acute on chronic DVTs. CT of abdomen the pelvis, which showed an IVC filter, with complete thrombosis of the lower IVC, and occlusion of the left common and internal iliac veins. CTA chest was negative for PE Principal Diagnosis Acute DVT Discharge Exam Impaired cognition Right lower extremity prominent swelling but preserved pulses and sensation Left lower extremities stasis changes Neurologic grossly nonfocal Discharge Data Allergies Allergy/AdvReac Type Severity Reaction Status Date / Time Iodinated Contrast Media Allergy Unknown nausea and Verified 03/15/22 00:08 vomiting No Known Drug Allergies Allergy Unknown Verified 03/15/22 00:08 Consultations 03/14/22 23:28 ED Decision to Admit Stat Ordered Studies 03/14/22 18:16 US venous doppler LE BI Stat 03/14/22 18:19 CT head/brain wo con Stat 03/14/22 23:42 CT angio chest PE protocol Urgent 03/15/22 00:14 CT Abd and Pelvis [CT abd pelvis IV con only] Urgent 03/16/22 01:29 MR brain wo/w con Stat Hospital Course (1) Acute deep vein thrombosis of both lower extremities: Acute on chronic DVT bilateral lower extremities/presence of IVC filter/IVC thrombosis/IVC filter present- The patient had been told in the past that he was not to be on anticoagulation due to his previous intracranial surgeries, however, this was discussed by the ED with neurology and they felt that anticoagulation could be performed if needed. CTA chest does not find failure of the IVC filter that has resulted in PEs, although that does not rule out the possibility of paradoxic embolus and CVA. See my bridge noteawaiting discussion with vascular surgery at [facility]. (2) Cognitive decline: Per neurosurgery could be progressive radiation effect; MRI brain pendingMRI department is trying to determine programming ability of ventriculostomy catheter; per discussion with his neurosurgeon, ventricular dilatation is chronic. Possibilities include subclinical seizurescontinues EEG worthwhile; neurology input [id number] neurology input not available today (3) H/O astrocytoma: Follows at [facility]; continue follow-upnothing seen on CT; MRI pending (4) Seizure disorder: Continue carbamazepine, lacosamide and lamotrigine Neurology consult Thursday (5) Hyperlipidemia: Continue simvastatin (6) GERD (gastroesophageal reflux disease): Continue famotidine (7) IVC thrombosis: See above Total Time Total Time Spent Total Time Spent (In Minutes): 35 Discharge Plan Discharge Items Reason For Visit: MEMORY LOSS, B/L LE DVT'S Condition on Discharge: Fair Follow-up/Referrals: Shari Alarcon DO [Primary Care Provider] - Medications and DC Order Prescriptions: No Action simvastatin 40 mg tablet 40 mg PO QAM lamotrigine 100 mg tablet extended release 24hr 100 mg PO BID Qty: 60 5RF lamotrigine 200 mg tablet extended release 24hr 400 mg PO BID 90 Days Qty: 360 0RF carbamazepine 200 mg capsule, ER multiphase 12 hr 200 mg PO BID 90 Days Qty: 180 0RF Rx Instructions: take along with 300mg capsule BID for a total of 500mg BID carbamazepine 300 mg capsule, ER multiphase 12 hr 300 mg PO BID 90 Days Qty: 180 0RF Rx Instructions: take along with 200mg capsule BID for a total of 500mg BID lacosamide [Vimpat] 50 mg tablet 50 mg PO BID Qty: 60 3RF famotidine 40 mg tablet 40 mg PO QPM Admission Data Admit Date/Time: 03/15/22 02:17 Attending Provider: Tabitha Floyd Admit Provider: Raj Hernandez Primary Care Provider: Shari Alarcon Other Providers: Raj Hernandez Coding Diagnoses Acute deep vein thrombosis of both lower extremities I82.403 Cognitive decline R41.89 H/O astrocytoma Z85.841 Seizure disorder G40.909 Hyperlipidemia E78.5 GERD (gastroesophageal reflux disease) K21.9 IVC thrombosis I82.220
[2022-03-15 18:34] LABS: Partial Thromboplastin Time 26.8 Seconds (21.0-31.0)
[2022-03-15] MEDS ORDERED: HEPARIN SOD (PORCINE) 1000 UNIT/ML IV ONE (19:05)
[2022-03-15] MEDS ORDERED: LAMOTRIGINE 200 MG PO SCH (21:00)
[2022-03-15] MEDS ORDERED: LAMOTRIGINE 100 MG PO SCH (21:00)
[2022-03-15] MEDS: LAMOTRIGINE 200 MG PO SCH (21:06)
[2022-03-15] MEDS: FAMOTIDINE 40 MG TABLET PO SCH (21:07)
[2022-03-15] MEDS: LAMOTRIGINE 100 MG PO SCH (21:07)
[2022-03-16 02:43] LABS: Partial Thromboplastin Ratio 1.2; Partial Thromboplastin Time 32.4 Seconds (21.0-31.0)
[2022-03-16] MEDS ORDERED: HEPARIN SOD (PORCINE) 1000 UNIT/ML IV ONE ×3 (03:15→11:30)
[2022-03-16] MEDS: ACETAMINOPHEN 325 MG TAB PO PRN (03:41)
[2022-03-16] MEDS ORDERED: MoRPHine SULFATE 2 MG/ML CARP IV STA (04:21)
--- NOTE | 2022-03-16 04:23 | Communication Note ---
Date of Service: March 16, 2022 Has partially occlusive dvts bilat. Has IVC filter. On heparin drip. Per nursing, RLE has had increased swelling w/o pain. Later in night, developed 8/10 calf pain. Ordering dose of morphine. Monitor for compartment syndrome.
[2022-03-16] MEDS: HEPARIN SODIUM/DEXTROSE 25,000 UNITS/500 ML BAG IV SCH ×3 (07:13→23:36)
[2022-03-16 07:59] LABS: Hematocrit (blood only) 37.6 % (40.1-51.0); Hemoglobin 12.9 g/dl (14.0-18.0); White Blood Count 7.43 K/ul (4.8-10.8)
[2022-03-16 08:11] LABS: Albumin Globulin Ratio 1.8 (0.9-2); Albumin Level 4.3 gm/dl (3.4-5.0); BUN Creatinine Ratio 16.5 (10-20); Bilirubin,Total 0.8 mg/dl (0.2-1.0); Calcium 8.8 mg/dl (8.5-10.1); Creatinine Clr Calc Pharmacy 138.6 ml/min; Est GFR (African American) 116.3 ml/min; Est GFR (Non-African American) 100.4 ml/min; Globulin 2.4 gm/dl (2.5-4.0); Phosphorus 2.6 mg/dl (2.5-4.9); Total Protein 6.7 gm/dl (6.0-8.3)
[2022-03-16 08:15] LABS: Mean Corpuscular Hemoglobin 31.7 pg (25.0-34.0); Mean Corpuscular Hgb Conc 34.3 g/dL (32.0-36.0); Mean Corpuscular Volume 92.4 fL (80.0-100.0); Mean Platelet Volume 9.1 fL (9.4-12.4); Platelet Count 157 K/uL (130-400); RDW Coefficient of Variation 14.7 % (11.5-14.5); RDW Standard Deviation 49.6 fL (36.4-46.3); Red Blood Count 4.07 M/uL (4.63-6.08)
[2022-03-16 08:16] LABS: Basophils # (auto) 0.04 K/uL (0-0.2); Basophils % (auto) 0.5 %; Eosinophils # (auto) 0.25 K/uL (0-0.50); Eosinophils % (auto) 3.4 %; Immature Granulocytes # (auto) 0.04 K/uL (0.00-0.02); Immature Granulocytes % (auto) 0.5 %; Lymphocytes # (auto) 1.98 K/uL (1.2-3.4); Lymphocytes % (auto) 26.6 %; Monocytes # (auto) 0.79 K/uL (0.24-0.82); Monocytes % (auto) 10.6 %; Neutrophils # (auto) 4.33 K/uL (1.4-6.5); Neutrophils % (auto) 58.4 %; Polychromasia 1+
[2022-03-16 08:25] LABS: Partial Thromboplastin Ratio 1.5; Partial Thromboplastin Time 41.1 Seconds (21.0-31.0); Prothrombin Time 10.7 Seconds (9.0-12.0)
[2022-03-16] MEDS: LAMOTRIGINE 100 MG PO SCH ×2 (08:34→20:24)
[2022-03-16] MEDS: SIMVASTATIN 40 MG TAB PO SCH (08:34)
[2022-03-16] MEDS: LAMOTRIGINE 200 MG PO SCH ×2 (08:34→20:24)
[2022-03-16] MEDS: LACOSAMIDE 50 MG TABLET PO SCH ×2 (08:53→20:32)
[2022-03-16] MEDS ORDERED: Nursing to Pharmacy Communication SCH (10:00)
[2022-03-16 10:13] LABS: Partial Thromboplastin Ratio 1.3; Partial Thromboplastin Time 37.1 Seconds (21.0-31.0)
--- NOTE | 2022-03-16 10:32 | XCELERA ---
[id number]
--- NOTE | 2022-03-16 11:24 | Neurology Consultation ---
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 Patient's last seizure occurred in May 2021 potentially related to a missed dose of medication. He has subsequently been doing well with Lamictal and Tegretol, no further interval seizures. He continues to have ongoing difficulty with memory and executive function which I suspect is multifactorial and related to his history of right frontal lobe astrocytoma resection, radiation treatments, further confounded by age with declining compensatory ability, and potential side effects of anticonvulsant therapy. Subclinical seizures not expected although have been considered in the outpatient setting which is why prolonged ambulatory EEG was recommended. I do note that his last 2 routine EEGs were negative for epileptiform abnormalities, however. I will order up-to-date carbamazepine and Lamictal trough levels. I did not think a another routine or bedside EEG would be useful at this point in time. I have not ordered a Vimpat level as is his current dosage is low and I do not expect toxicity from this medication. I would still recommend completion of the previously recommended ambulatory EEG which has apparently been authorized and scheduled. Scheduling may need to be delayed, however, if patient needs to remain either at [facility] or at a tertiary center long-term. Patient should continue with his current anticonvulsant medication regimen which includes Lamictal 500 mg twice daily, carbamazepine 500 mg twice daily, and Vimpat 50 mg twice daily. Patient may also benefit from outpatient formal neuropsychological evaluation. I have discussed this recommendation with both the patient and his spouse previously. I do not object to IV heparin for this patient in light of his recent diagnosis of acute on chronic bilateral lower extremity DVT and thrombosis of his IVC filter. I understand that the hospitalist service is working on a transfer to a tertiary center given the complexity of his lower extremity DVT management in light of his history of astrocytoma resection, chronic bilateral subdural hematomas, and PSYCHOLOGICAL SCIENCE PROFESSOR shunt. I do not object to transferring this patient to a tertiary center for specialized care in this regard. Patient may continue to follow-up with me in the outpatient setting. However, it seems that disposition is uncertain at this time given potential plans for transfer to a tertiary center. History of Present Illness Reason for Consultation: Cognitive decline Requesting Physician: Tabitha Floyd MD Attending Physician: Tabitha Floyd MD History of Present Illness The patient is a 56-year-old male who is known to me, he established with [facility] neurology May 16, 2020 for ongoing evaluation of an established diagnosis of seizure disorder and prior right frontal lobe astrocytoma resection. Patient's right frontal lobe astrocytoma was diagnosed in 1997, he had presented with right-sided headache, and subsequently underwent resection and radiation treatments. He developed postoperative seizures which took several years to achieve optimal control. He returned to work in 2001 with fairly good functional recovery but did have some residual left arm weakness at that time, subsequently resolved. Diagnosed with tumor recurrence in 2011, underwent another craniotomy at [facility], subsequent tumor was determined to be of lesser grade. He began having seizures after his second operation and required additional adjustment of his anticonvulsant medication. He has been taking Tegretol and Lamictal. His Tegretol level had been significantly elevated and the dosage was subsequently adjusted. An EEG completed in May 2020 had revealed right frontal slowing, although no epileptiform abnormalities were observed. His spouse has continued to remark that he displays ongoing difficulty with cognitive functioning, subtle difficulty with memory, although primarily difficulty with executive function, staying on task, getting things done. Has also had difficulty practicing his guitar, multitasking, and using his text message or on his cell phone. He has exhibited some mood irritability at times. He did have a breakthrough seizure in May 2021 potentially related to a missed dose of medication, there was loss of consciousness, collapse, generalized convulsive activity for 2 minutes, no incontinence or tongue bite, followed by mild postevent confusion. His lamotrigine dosage has been increased. I last evaluated him in neurology clinic December 17, 2021. He also follows with a neurosurgeon affiliated with [facility]. His seizures have been stable since that last episode in May 2021. He continues with carbamazepine and lamotrigine, seems to be tolerating well although his spouse has continued to express ongoing concerns regarding his cognitive functioning, some difficulty with short-term memory as well as executive function as above. Most recent anticonvulsant levels from January 14, 2022 were within normal therapeutic range, carbamazepine 9.0, lamotrigine 9.1. Patient is scheduled for ambulatory EEG monitoring, which apparently will be done shortly. The patient had presented to [facility] on March 14, 2022 for further evaluation of bilateral leg pain, difficulty ambulating, history of DVT noted with Strawberry filter placement, not anticoagulated. He was diagnosed with acute bilateral lower extremity deep vein thrombosis, acute on chronic, presence of IVC filter, IVC thrombosis. Patient's hospitalist physician had discussed his case with his neurosurgeon at [facility] who reportedly agreed that low-dose heparin without bolus would be reasonable in light of patient's acute on chronic lower extremity DVT. There was discussion regarding transferring this patient to [facility] for further care although it looks like the patient was not accepted by the hospitalist at that facility. It was recommended that he be transferred to a tertiary center given the complexity of his case. Allergies Allergy/AdvReac Type Severity Reaction Status Date / Time Iodinated Contrast Media Allergy Unknown nausea and Verified 03/15/22 00:08 vomiting No Known Drug Allergies Allergy Unknown Verified 03/15/22 00:08 Home Medications Medication Instructions Recorded Confirmed Type simvastatin 40 mg tablet 40 mg PO QAM 05/02/20 03/15/22 History lamotrigine 100 mg tablet,extended 100 mg PO BID #60 tabs 01/03/22 03/15/22 Rx release 24 hr carbamazepine 200 mg 200 mg PO BID 90 days #180 caps 02/13/22 03/15/22 Rx capsule,extended release [id number] carbamazepine 300 mg 300 mg PO BID 90 days #180 caps 02/13/22 03/15/22 Rx capsule,extended release [id number] lamotrigine 200 mg tablet,extended 400 mg PO BID 90 days #360 tabs 02/13/22 03/15/22 Rx release 24 hr lacosamide 50 mg tablet (Vimpat) 50 mg PO BID #60 tabs 02/17/22 03/15/22 Rx famotidine 40 mg tablet 40 mg PO QPM 03/15/22 03/15/22 History Patient History Medical History (Updated 03/16/22 @ 11:19 by Brayden Dasilva MD) GERD (gastroesophageal reflux disease) H/O astrocytoma Hyperlipidemia Seizure disorder Surgical History (Updated 03/15/22 @ 01:49 by John Kim MD) History of brain surgery History of cholecystectomy Family History Mother Unknown family medical history Father Unknown family medical history from patient questionaire Social History Smoking Status: Former smoker Hx Alcohol Use: No Hx Substance Use: No Preferred Language: German Communication Ability: Effective Stave Bolt Equalizer Required: No Beliefs That Will Affect Care: Muslim Muslim Beliefs: Protestant Current Living Situation: Spouse Feels Safe at Home: Yes Assistive Devices: None Review of Systems Constitutional: no fever and no chills Eyes: no blind spots and no diplopia Ear, Nose, Mouth, Throat: no hearing loss Respiratory: no cough and no dyspnea Cardiovascular: no chest pain and no palpitations Gastrointestinal: no nausea and no vomiting Genitourinary: no dysuria Musculoskeletal: no back pain, no neck pain and no myalgia Integumentary: no rash Neurologic: as per Subjective / HPI Psychiatric: as per Subjective / HPI and + irritability; no depression and no anxiety Hematologic / Lymphatic: no easy bleeding Exam (Neuro) Constitutional: well developed and well nourished; no acute distress Eyes: normal visual irvin by confrontation, PERRL, normal accommodation and EOM intact bilaterally; no fundoscopic abnormality, no nystagmus and no papilledema Cardiovascular: Vessels: normal carotid upstroke; no carotid bruit Neurologic: Oriented to:: Person, Place and Time Memory: Short Term Intact and Remote Intact Attention: Span Intact; negative Concentration Intact Language: Naming Objects and Repeating Phrases Speech Fluency: negative Dysarthria Speech Aphasia: negative Aphasia Fund of Knowledge: Current Events, Past History and Vocabulary Cranial Nerves: Normal II (Visual irvin full to confrontation, visual acuity normal), III, IV, (Pupils equal round reactive to light and accommodation, eye movements normal), V (Facial sensation intact), VII (There is no facial droop or weakness), VIII (Hearing intact), IX, X (Palate elevates to midline), XI (Shoulder shrug intact) and XII (Tongue protrudes to midline) Motor Strength: Normal Lower Extremities and Normal U pper Extremities; negative Pronator Drift Motor Tone: Normal Lower Extremities and Normal Upper Extremities Muscle Bulk/Involuntary Movements: No Involuntary Movements; negative Muscle Atrophy Sensation: Light Touch Intact, Pain/Temperature Intact, Vibration Intact and Proprioception Intact Coordination: Normal; negative Limited Balance, Dysdiadochokinesia, Finger-Nose Abnormal or Heel-Trinh Abnormal Deep Tendon Reflexes: Rt Triceps: 2+, Lt Triceps: 2+, Rt Biceps: 2+, Lt Biceps: 2+, Rt Brachioradialis: 2+, Lt Brachioradialis: 2+, Rt Patellar: 2+, Lt Patellar: 2+, Rt Ankle: 2+ and Lt Ankle: 2+ Special Tests: negative Babinski Present Gait: Normal Station and Gait Details: Patient is slightly inattentive, exhibits mildly reduced processing speed. Results & Data ([facility]) Vital Signs (Past 12 Hours) Vital Signs Temp Pulse Pulse Resp BP BP Pulse Ox 03/16/22 08:11 36.7 C 78 16 137/92 98 03/16/22 07:38 76 03/16/22 04:00 36.8 C 80 20 124/83 96 03/15/22 23:54 36.7 C 70 20 130/86 96 03/15/22 23:08 86 O2 Del Method 03/16/22 08:11 Room Air 03/16/22 07:38 03/16/22 04:00 Room Air 03/15/22 23:54 Room Air 03/15/22 23:08 Laboratory Results WBC 7.43, hemoglobin 12.9, hematocrit 37.6, MCV 92.4, platelet count 157, sodium 134, potassium 4.0, BUN 13, creatinine 0.79, glucose 101, calcium 8.8, magnesium 2.0, AST 12, ALT 17, TSH 2.971. Anticonvulsant levels from January 14, 2022 reviewed. Carbamazepine 9.0, lamotrigine 9.1. Diagnostic Findings CT of the head completed March 14, 2022 reviewed. No acute hemorrhage or acute process. There is a ventriculostomy catheter in place terminating within the right lateral ventricle. There is dilation of the lateral and third ventricles with suggestion to correlate with prior imaging to exclude hydrocephalus. There are chronic subdural hematomas versus hygromas. Evidence of prior right frontal craniotomy. An EEG completed at [facility] May 21, 2020 revealed right frontal slowing suggestive of an underlying structural abnormality and consistent with patient's history of right frontal astrocytoma resection. No epileptiform abnormalities observed. 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 Ex vacuo dilation of the right frontal horn. T2 hyperintensity in the frontal white matter bilaterally. There is vague T2 hyperintensity in the hippocampus on the right on axial scan. Postcontrast images show dural thickening. There is irregular enhancement in the region of the right lovett of Monro and septum pellucidum and in the right posterior thalamus and in the right hippocampus. This pattern is unchanged compared to previous MRI done in June 2017. Impression was of stable appearance without evidence of tumor progression. Stable areas of right basal ganglia, thalamic, hippocampal enhancement and stable diffuse pachymeningeal thickening. Only the report was available. Additional interval follow-up MRI reports done at [facility] not available. An EEG completed at an outside facility January 12, 2014 was abnormal secondary to right hemispheric disorganization with right frontal breach rhythm from craniotomy defect. No seizure activity detected. Coding Level of Care Code 87704 Initial Inpt Care Lvl 3 Diagnoses H/O astrocytoma Z85.841 S/P PSYCHOLOGICAL SCIENCE PROFESSOR shunt Z98.2 H/O therapeutic radiation Z92.3 Seizure disorder G40.909 Cognitive decline R41.89
--- NOTE | 2022-03-16 15:31 | Hospitalist Progress Note ---
Date of Service March 16, 2022 Assessment & Plan (1) Acute deep vein thrombosis of both lower extremities: Plan: Acute on chronic DVT bilateral lower extremities/presence of IVC filter/IVC thrombosis Filter placed in 1997 at which time related to astrocytoma he was told anticoagulation is contraindicated Discussed with his neurosurgeon (Dr. Patterson at [facility]), CT scan seen by himlow risk and per discussion initiated on IV heparin low-dose protocol without bolus With respect to the filter itself and surrounding thrombosis, [facility]; both opined at present no treatment other than anticoagulation; at [place], they stated after he is on anticoagulation for 6 months feasibility of creating channels or looking at options of trying to remove the filter can be consideredthey will call him In the meantime, formal vascular surgery consulted herethey should be available tomorrow [facility] and we would need to call tomorrow by [facility] medcall [phone]. Once it is clear no surgical intervention switch to DOAC after cost check (2) Cognitive decline: Plan: Longstanding but according to the somewhat abrupt/worsening since about a month ; per neurosurgery could be progressive radiation effect; MRI brain pendingMRI department is trying to obtain written details with respect to ventriculostomy catheter; per discussion with his neurosurgeon, ventricular dilatation is chronic. Neurology input noted and appreciated; agree, subclinical seizure seems less likely (3) H/O astrocytoma: Plan: Follows at [facility]; continue follow-upnothing seen on CT; MRI pending (4) Seizure disorder: Plan: Continue carbamazepine, lacosamide and lamotrigine Neurology opinion noted (5) Hyperlipidemia: Plan: Continue simvastatin (6) GERD (gastroesophageal reflux disease): Plan: Continue famotidine (7) IVC thrombosis: Plan: See above Plan Mild hyponatremia can be observed OT/PT Admission and Anticipated Discharge Date Admission Date: March 15, 2022 Subjective Follow-up of presentation with ambulatory dysfunction due to lower extremity painno new issues Physical Exam Physical Exam: Constitutional and general: No acute distress, looks biologic age Head and face: No puffiness, atraumatic Eyes: No scleral icterus, extraocular movements normal Neck: Supple, no JVD Musculoskeletal: No acute joint swelling, no bony abnormalities Skin/dermatologic/integument: No rash, no purpura Hematologic and lymphatic: pallor +, no petechia Gastrointestinal/abdomen: Nondistended, soft, nonacute Neurologic: Cranial nerves intact, nonfocal Impaired cognition Cardiovascular: Heart rhythm regular, no rub, no murmur, no gallop Respiratory: Chest movements equal, no use of accessory muscles, no adventitious sounds Extremities: Edema right lower extremity; stasis changes left lower extremity No evidence of PCD Results & Data Results & Data ([facility]) Vital Signs (Past 12 Hours) Vital Signs Temp Pulse Pulse Resp BP BP Pulse Ox 03/16/22 15:18 37.0 C 73 16 149/91 H 100 03/16/22 11:14 36.5 C 80 16 145/94 H 95 03/16/22 08:11 36.7 C 78 16 137/92 98 03/16/22 07:38 76 03/16/22 04:00 36.8 C 80 20 124/83 96 O2 Del Method 03/16/22 15:18 Room Air 03/16/22 11:14 Room Air 03/16/22 08:11 Room Air 03/16/22 07:38 03/16/22 04:00 Room Air Laboratory Results Laboratory Results - last 24 hr 03/15/22 03/16/22 03/16/22 18:11 02:03 07:23 WBC 7.43 RBC 4.07 L Hgb 12.9 L Hct 37.6 L MCV 92.4 MCH 31.7 MCHC 34.3 RDW Std Deviation 49.6 H RDW Coeff of Sudhir 14.7 H Plt Count 157 MPV 9.1 L Immature Gran % (Auto) 0.5 Neut % (Auto) 58.4 Lymph % (Auto) 26.6 Cavalier % (Auto) 10.6 Eos % (Auto) 3.4 Baso % (Auto) 0.5 Neut # (Auto) 4.33 Lymph # (Auto) 1.98 Cavalier # (Auto) 0.79 Eos # (Auto) 0.25 Baso # (Auto) 0.04 Immature Gran # (Auto) 0.04 H Polychromasia 1+ PT INR APTT 26.8 32.4 H PTT Ratio 1.0 1.2 Sodium Potassium Chloride Carbon Dioxide Anion Gap BUN Creatinine Est Cr Clr Drug Dosing Est GFR ( Amer) Est GFR (Non-Af Amer) BUN/Creatinine Ratio Glucose Fasting Glucose Calcium Phosphorus Magnesium Total Bilirubin AST ALT Alkaline Phosphatase Total Protein Albumin Globulin Albumin/Globulin Ratio 03/16/22 03/16/22 03/16/22 07:23 07:23 09:38 WBC RBC Hgb Hct MCV MCH MCHC RDW Std Deviation RDW Coeff of Sudhir Plt Count MPV Immature Gran % (Auto) Neut % (Auto) Lymph % (Auto) Cavalier % (Auto) Eos % (Auto) Baso % (Auto) Neut # (Auto) Lymph # (Auto) Cavalier # (Auto) Eos # (Auto) Baso # (Auto) Immature Gran # (Auto) Polychromasia PT 10.7 INR 1.0 APTT 41.1 H 37.1 H PTT Ratio 1.5 1.3 Sodium 134 L Potassium 4.0 Chloride 99 Carbon Dioxide 27 Anion Gap 8 BUN 13 Creatinine 0.79 Est Cr Clr Drug Dosing 138.6 Est GFR ( Amer) 116.3 Est GFR (Non-Af Amer) 100.4 BUN/Creatinine Ratio 16.5 Glucose 101 H Fasting Glucose 101 H Calcium 8.8 Phosphorus 2.6 Magnesium 2.0 Total Bilirubin 0.8 AST 12 L ALT 17 Alkaline Phosphatase 71 Total Protein 6.7 Albumin 4.3 Globulin 2.4 L Albumin/Globulin Ratio 1.8 PG Care Time/CCT Total # of Minutes Spent Total Time Spent with Patient: Total time spent is greater than 50% in coordination of care (as documented) at patient's floor/unit and/or counseling patient: Coding Level of Care Code 77712 Subseq Hosp Care Lvl 3 Diagnoses Acute deep vein thrombosis of both lower extremities I82.403 Cognitive decline R41.89 H/O astrocytoma Z85.841 Seizure disorder G40.909 Hyperlipidemia E78.5 GERD (gastroesophageal reflux disease) K21.9 IVC thrombosis I82.220
[2022-03-16 18:20] LABS: Partial Thromboplastin Ratio 1.5; Partial Thromboplastin Time 40.5 Seconds (21.0-31.0)
[2022-03-16] MEDS: FAMOTIDINE 40 MG TABLET PO SCH (20:25)
[2022-03-17 01:00] LABS: Partial Thromboplastin Ratio 1.3; Partial Thromboplastin Time 36.3 Seconds (21.0-31.0)
[2022-03-17] MEDS ORDERED: HEPARIN SOD (PORCINE) 1000 UNIT/ML IV ONE (01:15)
[2022-03-17] MEDS: ONDANSETRON INJ 2 MG/ML 2 ML VIAL IV PRN ×2 (04:21→15:16)
[2022-03-17 08:22] LABS: Basophils # (auto) 0.02 K/uL (0-0.2); Basophils % (auto) 0.3 %; Eosinophils # (auto) 0.13 K/uL (0-0.50); Eosinophils % (auto) 1.7 %; Hematocrit (blood only) 36.4 % (40.1-51.0); Hemoglobin 12.7 g/dl (14.0-18.0); Immature Granulocytes # (auto) 0.06 K/uL (0.00-0.02); Immature Granulocytes % (auto) 0.8 %; Lymphocytes # (auto) 1.07 K/uL (1.2-3.4); Lymphocytes % (auto) 14.2 %; Mean Corpuscular Hemoglobin 31.8 pg (25.0-34.0); Mean Corpuscular Hgb Conc 34.9 g/dL (32.0-36.0); Mean Corpuscular Volume 91.2 fL (80.0-100.0); Mean Platelet Volume 9.2 fL (9.4-12.4); Monocytes % (auto) 10.6 %; Neutrophils # (auto) 5.45 K/uL (1.4-6.5); Neutrophils % (auto) 72.4 %; Platelet Count 144 K/uL (130-400); RDW Coefficient of Variation 14.7 % (11.5-14.5); RDW Standard Deviation 49.6 fL (36.4-46.3); Red Blood Count 3.99 M/uL (4.63-6.08); White Blood Count 7.53 K/ul (4.8-10.8)
[2022-03-17 08:36] LABS: Partial Thromboplastin Ratio 1.5; Partial Thromboplastin Time 42.2 Seconds (21.0-31.0); Prothrombin Time 10.5 Seconds (9.0-12.0)
[2022-03-17 08:53] LABS: Albumin Globulin Ratio 1.7 (0.9-2); Albumin Level 4.2 gm/dl (3.4-5.0); BUN Creatinine Ratio 14.5 (10-20); Bilirubin,Total 0.6 mg/dl (0.2-1.0); Calcium 8.8 mg/dl (8.5-10.1); Creatinine Clr Calc Pharmacy 131.7 ml/min; Est GFR (Non-African American) 98.4 ml/min; Globulin 2.5 gm/dl (2.5-4.0); Phosphorus 2.5 mg/dl (2.5-4.9); Potassium 4.4 mmol/L (3.5-5.1); Total Protein 6.7 gm/dl (6.0-8.3)
[2022-03-17] MEDS: HEPARIN SODIUM/DEXTROSE 25,000 UNITS/500 ML BAG IV SCH ×6 (09:06→23:22)
[2022-03-17] MEDS: SIMVASTATIN 40 MG TAB PO SCH (09:07)
[2022-03-17] MEDS: LAMOTRIGINE 100 MG PO SCH ×2 (09:07→20:27)
[2022-03-17] MEDS: LAMOTRIGINE 200 MG PO SCH ×2 (09:08→20:26)
[2022-03-17] MEDS: LACOSAMIDE 50 MG TABLET PO SCH ×2 (09:43→20:42)
[2022-03-17] MEDS ORDERED: bisacodyL 5 MG TABEC PO PRN (10:04)
--- NOTE | 2022-03-17 13:03 | Consultation ---
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 Using TPA for this would be an extreme risk that outweigh any benefits with his current problems. Consideration can be given for re imaging in 3 dru hs to look for recanulazation of the thrombus. At that time there may be an opportunity for stenting if an outflow channel exists. This can be done by his vascular surgeon who follow him regularly. This patient should be anticoagulated if there is no ccntraindication from neuro. Due to his intracranial problems, I would keep him on oral anticoagulation with coumadin being that this is reversible whereas the others take 48 hours before the full anticoagulation effect is gone. Thank you very much for letting us participate in the care of this patient. Please call if we are needed. History of Present Illness Reason for Consultation: Vena Cava Clot Attending Physician: Trenton Benitez MD History of Present Illness This is a 56 yo male who was brought to the ED for bilateral leg pain which had gotten worse over the last 24 hours. His also claims of declining mental function over the last 4 weeks. 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 He had an IVC filter placed in 1997 due to lower extremity DVT associated with the brain tumor. At that time he could not move his left side and had a recent intracranial bleed. He also had a shunt placed at that time. He has been treated in the past by a vasuclar surgeon for venous disease of the lower extremities and pelvis. Duplex of the lower extremities showed acute and chronic DVT of the abdomen and pelvis. He had a CTA of the abdomen and pelvis that showed thrombosis of the distal vena cava with clot in the filter extended to the upper tip of the filter. There was also occlusion of the left common iliac vein and both internal iliac veins. CTA of the chest was negative for PE. He does have a venous ulceration of the left lower extremity and bilateral lower extremity edema. He does wear compression stockings daily. Allergies Allergy/AdvReac Type Severity Reaction Status Date / Time Iodinated Contrast Media Allergy Unknown nausea and Verified 03/15/22 00:08 vomiting No Known Drug Allergies Allergy Unknown Verified 03/15/22 00:08 Home Medications Medication Instructions Recorded Confirmed Type simvastatin 40 mg tablet 40 mg PO QAM 05/02/20 03/15/22 History lamotrigine 100 mg tablet,extended 100 mg PO BID #60 tabs 01/03/22 03/15/22 Rx release 24 hr carbamazepine 200 mg 200 mg PO BID 90 days #180 caps 02/13/22 03/15/22 Rx capsule,extended release [id number] carbamazepine 300 mg 300 mg PO BID 90 days #180 caps 02/13/22 03/15/22 Rx capsule,extended release [id number] lamotrigine 200 mg tablet,extended 400 mg PO BID 90 days #360 tabs 02/13/22 03/15/22 Rx release 24 hr lacosamide 50 mg tablet (Vimpat) 50 mg PO BID #60 tabs 02/17/22 03/15/22 Rx famotidine 40 mg tablet 40 mg PO QPM 03/15/22 03/15/22 History Patient History Medical History GERD (gastroesophageal reflux disease) H/O astrocytoma Hyperlipidemia Seizure disorder Surgical History History of brain surgery History of cholecystectomy Family History Mother Unknown family medical history Father Unknown family medical history from patient questionaire Social History Smoking Status: Former smoker Hx Alcohol Use: No Hx Substance Use: No Preferred Language: Hong Konger Communication Ability: Impaired 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 Beliefs That Will Affect Care: Hinduism Hinduism Beliefs: Episcopalian marital status: Current Living Situation: Spouse How many Children do You have: 3 Feels Safe at Home: Yes Assistive Devices: None Review of Systems Review of Systems: All systems reviewed & are unremarkable except as noted in HPI & below Physical Exam Constitutional: WD/WN, vitals as above Respiratory: normal respiratory effort; no respiratory distress Cardiovascular: Rate/Rhythm: regular rate and regular rhythm Vessels: radial pulses present Extremities: normal capillary refill and + edema (bilateral lower extremity, left > right); no calf tenderness Gastrointestinal (Abdomen): Percussion/Palpation: abdomen soft; abdomen nontender Musculoskeletal: no cyanosis or clubbing, extremities motor strength 5/5 Neurologic: moves all extremities Psychiatric: Orientation: alert and oriented x 3 Results & Data ([facility]) Vital Signs (Past 12 Hours) Vital Signs Temp Pulse Pulse Resp BP BP Pulse Ox 03/17/22 10:52 36.6 C 83 18 131/79 94 03/17/22 07:26 76 03/17/22 07:20 36.8 C 73 20 141/100 H 96 03/17/22 01:34 37.1 C 76 18 145/92 H 95 03/17/22 01:26 81 O2 Del Method 03/17/22 10:52 Room Air 03/17/22 07:26 03/17/22 07:20 03/17/22 01:34 Room Air 03/17/22 01:26
--- NOTE | 2022-03-17 13:25 | Hospitalist Progress Note ---
Date of Service March 17, 2022 Assessment & Plan (1) Acute deep vein thrombosis of both lower extremities: Plan: Acute deep vein thrombosis of both lower extremities: -Acute on chronic DVT bilateral lower extremities/presence of IVC filter/IVC thrombosis -Filter placed in 1997 at which time related to astrocytoma he was told anticoagulation is contraindicated -Discussed with his neurosurgeon (Dr. Patterson at [facility]), CT scan seen by himlow risk and per discussion initiated on IV heparin low-dose protocol without bolus With respect to the filter itself and surrounding thrombosis, [facility]; both opined at present no treatment other than anticoagulation; at [place], they stated after he is on anticoagulation for 6 months feasibility of creating channels or looking at options of trying to remove the filter can be consideredthey will call him In the meantime, formal vascular surgery consulted herethey should be available tomorrow Patient follows with [facility] at [facility]'sfamily desires his opinion and we would need to call tomorrow by [facility] medcall [phone]. Was initially targeting DOAC therapy, was seen by vascular surgery who did not recommend tPA due to extreme risk but does recommend anticoagulation with 3- month follow-up to look for recannulization of thrombus. DOAC was considered, recommended to continue Coumadin for reversibility rather than pursuing DOAC Given risk of bleeding with prior bleeds will maintain on heparin and bring up slowly on warfarin while observing for signs of bleeding. Did discuss with coagulation clinic. Given risk of bleeding for intracranial bleed, reasonable to watch with initial load over the next day or 2, follow INR velocity and then transition to warfarin with potential low-dose Lovenox bridge if doing well. If bridged with Lovenox as outpatient would dose reduce to 0.75 mg twice daily rather than 1mpk - Warfarin for now, 7.5x1, 5mg x2 days and adjust per normogram (working on average weekly dose from prior hx). - Continue heparin gtt Cognitive decline: - Longstanding but according to the somewhat abrupt/worsening since about a month ; per neurosurgery could be progressive radiation effect; MRI brain pendingMRI department is trying to obtain written details with respect to ventriculostomy catheter; per discussion with his neurosurgeon, ventricular dilatation is chronic. - Neurology input noted and appreciated; agree, subclinical seizure seems less likely Carbamazepine level adjustments as noted below H/O astrocytoma: Follows at [facility]; continue follow-upnothing seen on CT MRI remains pending Seizure disorder: Continue carbamazepine, lacosamide and lamotrigine Carbamazepine level 12.9, slightly supratherapeutic, history of carbamazepine toxicity Carbamazepine reduced to 400mg twice daily Vimpat increased to 100 mg twice daily, ligamental continued at current dosing. Appreciate neuro recs - Pt with hx of seizure c/b hemmorhage, high risk for seizure complications especially while on anticoagulation Hyperlipidemia: Continue simvastatin GERD (gastroesophageal reflux disease): Continue famotidine IVC thrombosis: IVC filter placed 1997 due to lower extremity DVT and inability anticoagulate in the setting of intracranial bleed, had a shunt placed as well Has bilateral lower extremity DVT with chronic DVT of the abdomen and pelvis CTAA/P: Thrombosis of distal vena cava with clot extension to filter, occlusion of left common iliac vein, and both internal iliac vein CTAchest: No PE Seen by vascular surgery, case discussed with specialist as above. Recommended to continue heparin, slow bridge to warfarin. Initially was recommended for DOAC, this was recommend against for reversibility. DOAC also not ideal in the setting of brain malignancy. (2) Cognitive decline: (3) H/O astrocytoma: (4) Seizure disorder: (5) Hyperlipidemia: (6) GERD (gastroesophageal reflux disease): (7) IVC thrombosis: Admission and Anticipated Discharge Date Admission Date: March 15, 2022 Subjective Patient is seen at the bedside this morning, has multiple family members present. Has not yet seen vascular, reports that he feels okay and with good energy. No chest pain, chest pressure, lightheadedness, dizziness, nausea, vomiting, diarrhea. Leg pain is improved from prior today, minimally noticeable to him, notes that the pain was worse when coming in and notes he has had leg swelling in the past. Review of Systems Review of Systems: All systems reviewed & are unremarkable except as noted in Subjective Physical Exam Physical Exam: General: A&Ox3. NAD. Cooperative. Thought process linear, although patient occasionally impulsive and circumferential HEENT: Atraumatic, normocephalic. Vision and hearing grossly intact. Pulm: CTAB A&P. -wheezes, -rales, -rhonchi. Symmetrical chest rise. No increase in work of breathing. No respiratory distress. Cardiac: RRR, -mrg. Radial pulses intact and symmetrical. Abdominal: Nontender, nondistended, soft. BS present. 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 Results & Data Results & Data ([facility]) Vital Signs (Past 12 Hours) Vital Signs Temp Pulse Pulse Resp BP BP Pulse Ox 03/17/22 10:52 36.6 C 83 18 131/79 94 03/17/22 07:26 76 03/17/22 07:20 36.8 C 73 20 141/100 H 96 03/17/22 01:34 37.1 C 76 18 145/92 H 95 03/17/22 01:26 81 O2 Del Method 03/17/22 10:52 Room Air 03/17/22 07:26 03/17/22 07:20 03/17/22 01:34 Room Air 03/17/22 01:26 PG Care Time/CCT Total # of Minutes Spent Total Time Spent with Patient: Total time spent is greater than 50% in coordination of care (as documented) at patient's floor/unit and/or counseling patient: Coding Level of Care Code 36240 Subseq Hosp Care Lvl 2 Diagnoses Acute deep vein thrombosis of both lower extremities I82.403 Cognitive decline R41.89 H/O astrocytoma Z85.841 Seizure disorder G40.909 Hyperlipidemia E78.5 GERD (gastroesophageal reflux disease) K21.9 IVC thrombosis I82.220
--- NOTE | 2022-03-17 13:55 | Neurology Progress Note ---
Date of Service March 17, 2022 Assessment & Plan (1) Seizure disorder: (2) H/O astrocytoma: (3) Cognitive decline: (4) H/O therapeutic radiation: (5) Acute deep vein thrombosis of both lower extremities: Plan Patient has been neurologically stable in the context of his current ho spitalization for acute on chronic lower extremity DVT management. He does have chronic cognitive dysfunction/executive dysfunction, likely multifactorial, related to his history of frontal lobe astrocytoma resection, radiation treatment, aging with perhaps superimposed loss of compensatory function, and possible side effects of anticonvulsant therapy, possibly carbamazepine toxicity which has been an issue for him in the past. Subclinical seizures not expected but perhaps not completely excluded. I would recommend that he reduce his dosage of carbamazepine ER to 400 mg twice daily. Increase Vimpat to 100 mg twice daily. Continue with lamotrigine ER 500 mg twice daily. Patient will need to reschedule his outpatient ambulatory EEG monitoring which was to begin this Thursday. Patient will continue with IV heparin for management of acute on chronic lower extremity DVT. Patient has been seen by vascular surgery and his case has been discussed with his neurosurgeon as well as specialists at a tertiary center, per hospitalist physician note. Would have a low threshold to obtain a stat CT of the head in the event of any acute or progressive headache or other change in patient's neurological status. I will continue to follow along. Admission and Anticipated Discharge Date Admission Date: March 15, 2022 Subjective Follow-up for seizure disorder, history of astrocytoma resection The patient has not had any seizure activity during this hospitalization. He continues to exhibit mild difficulty with cognitive functioning as described previously. 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 Again, no new or interval seizures. No headache, vision loss, or new neurologic complaints. Review of Systems Constitutional: no fever Eyes: no blind spots and no diplopia Neurologic: as per Subjective / HPI, + confusion and + memory loss; no seizure-like activity and no headache(s) Results & Data ([place]) Vital Signs (Past 12 Hours) Vital Signs Temp Pulse Pulse Resp BP BP Pulse Ox 03/17/22 10:52 36.6 C 83 18 131/79 94 03/17/22 07:26 76 03/17/22 07:20 36.8 C 73 20 141/100 H 96 O2 Del Method 03/17/22 10:52 Room Air 03/17/22 07:26 03/17/22 07:20 Laboratory Results WBC 7.53, hemoglobin 12.7, hematocrit 36.4, MCV 91.2, platelet count 144, sodium 132, potassium 4.4, BUN 12, creatinine 0.83, calcium 8.8, magnesium 2.0, AST 11, ALT 16, carbamazepine level 12.9 (therapeutic range 4-12). Diagnostic Findings CT of the head completed March 14, 2022 negative for acute findings, ventriculostomy catheter in place within the right lateral ventricle. Dilatation of the lateral and third ventricles noted. Chronic subdural hem atomas versus hygromas containing macroscopic fat noted. Prior right frontal craniotomy. Exam (Neuro) Neurologic: Oriented to:: Person, Place and Time Attention: Span Intact; negative Concentration Intact Speech Fluency: negative Dysarthria or Dysfluency Speech Aphasia: negative Aphasia Fund of Knowledge: Current Events, Past History and Vocabulary Cranial Nerves: Normal II, III, IV, and VII Motor Strength: Normal Lower Extremities and Normal Upper Extremities Muscle Bulk/Involuntary Movements: No Involuntary Movements Coordination: Normal Coding Level of Care Code 50454 Subseq Hosp Care Lvl 2 Diagnoses Seizure disorder G40.909 H/O astrocytoma Z85.841 Cognitive decline R41.89 H/O therapeutic radiation Z92.3 Acute deep vein thrombosis of both lower extremities I82.403
[2022-03-17] MEDS ORDERED: WARFARIN SOD 2.5 MG TAB PO ONE (16:00)
[2022-03-17 16:07] LABS: Partial Thromboplastin Ratio 1.6; Partial Thromboplastin Time 43.6 Seconds (21.0-31.0)
[2022-03-17] MEDS: WARFARIN SOD 5 MG TAB PO SCH (16:15)
[2022-03-17] MEDS: ACETAMINOPHEN 325 MG TAB PO PRN (20:16)
[2022-03-17] MEDS: FAMOTIDINE 40 MG TABLET PO SCH (20:28)
[2022-03-17 21:41] LABS: Partial Thromboplastin Ratio 1.7
[2022-03-17 21:56] LABS: Partial Thromboplastin Time 47.8 Seconds (21.0-31.0)
[2022-03-18] MEDS: ACETAMINOPHEN 325 MG TAB PO PRN (00:29)
[2022-03-18] MEDS ORDERED: traMADol HCL 50 MG TABLET PO STA (01:43)
[2022-03-18] MEDS ORDERED: traMADol HCL 50 MG TABLET ONE (05:40)
[2022-03-18] MEDS: ACETAMINOPHEN 500 MG TAB PO SCH ×3 (05:46→17:55)
[2022-03-18 06:58] LABS: Basophils # (auto) 0.05 K/uL (0-0.2); Basophils % (auto) 0.8 %; Eosinophils # (auto) 0.27 K/uL (0-0.50); Eosinophils % (auto) 4.2 %; Hematocrit (blood only) 35.6 % (40.1-51.0); Hemoglobin 12.2 g/dl (14.0-18.0); Immature Granulocytes # (auto) 0.06 K/uL (0.00-0.02); Immature Granulocytes % (auto) 0.9 %; Lymphocytes # (auto) 1.92 K/uL (1.2-3.4); Mean Corpuscular Hgb Conc 34.3 g/dL (32.0-36.0); Mean Corpuscular Volume 93.4 fL (80.0-100.0); Monocytes # (auto) 0.75 K/uL (0.24-0.82); Monocytes % (auto) 11.7 %; Neutrophils # (auto) 3.35 K/uL (1.4-6.5); Neutrophils % (auto) 52.4 %; Platelet Count 158 K/uL (130-400); RDW Coefficient of Variation 14.8 % (11.5-14.5); Red Blood Count 3.81 M/uL (4.63-6.08)
[2022-03-18 07:20] LABS: Albumin Globulin Ratio 1.5 (0.9-2); BUN Creatinine Ratio 12.2 (10-20); Bilirubin,Total 0.7 mg/dl (0.2-1.0); Calcium 8.6 mg/dl (8.5-10.1); Creatinine Clr Calc Pharmacy 133.1 ml/min; Est GFR (African American) 114.6 ml/min; Est GFR (Non-African American) 98.9 ml/min; Globulin 2.6 gm/dl (2.5-4.0); Magnesium 2.1 mg/dl (1.7-2.4); Potassium 3.8 mmol/L (3.5-5.1); Total Protein 6.6 gm/dl (6.0-8.3)
[2022-03-18 08:03] LABS: Prothrombin Time 10.7 Seconds (9.0-12.0)
[2022-03-18 08:06] LABS: Partial Thromboplastin Time 53.8 Seconds (21.0-31.0)
[2022-03-18] MEDS: SIMVASTATIN 40 MG TAB PO SCH ×2 (08:15→20:38)
[2022-03-18] MEDS: LAMOTRIGINE 200 MG PO SCH ×2 (08:17→20:36)
[2022-03-18] MEDS: LAMOTRIGINE 100 MG PO SCH ×2 (08:17→20:36)
[2022-03-18] MEDS: LACOSAMIDE 50 MG TABLET PO SCH ×2 (08:39→20:58)
[2022-03-18] MEDS: HEPARIN SODIUM/DEXTROSE 25,000 UNITS/500 ML BAG IV SCH ×2 (10:52→22:18)
--- NOTE | 2022-03-18 13:11 | Hospitalist Progress Note ---
Date of Service March 18, 2022 Assessment & Plan (1) Acute deep vein thrombosis of both lower extremities: Plan: Acute deep vein thrombosis of both lower extremities: -Acute on chronic DVT bilateral lower extremities/presence of IVC filter/IVC thrombosis -Filter placed in 1997 at which time related to astrocytoma he was told anticoagulation is contraindicated -Discussed with his neurosurgeon (Dr. Patterson at [facility]), CT scan seen by himlow risk and per discussion initiated on IV heparin low-dose protocol without bolus With respect to the filter itself and surrounding thrombosis, [facility]; both opined at present no treatment other than anticoagulation; at [place], they stated after he is on anticoagulation for 6 months feasibility of creating channels or looking at options of trying to remove the filter can be consideredthey will call him In the meantime, formal vascular surgery consulted herethey should be available tomorrow Patient follows with John Cantor at [facility]' At discharge fax records/reports to his office at [phone]. Order placed. Was initially targeting DOAC therapy, was seen by vascular surgery who did not recommend tPA due to extreme risk but does recommend anticoagulation with 3- month follow-up to look for recannulization of thrombus. DOAC was considered, recommended to continue Coumadin for reversibility rather than pursuing DOAC Discussed with coag clinic. Given risk of bleeding with prior bleeds will maintain on heparin and bring up slowly on warfarin while observing for signs of bleeding. Given risk of bleeding for intracranial bleed, reasonable to watch with initial load over the 48 at least, follow INR velocity and then transition to warfarin with potential low-dose Lovenox bridge if doing well. If bridged with Lovenox as outpatient would dose reduce to 0.75 mg twice daily rather than 1mpk - Warfarin for now, 7.5x1, 5mg x2 days and adjust per normogram (working on average weekly dose from prior hx). - Continue heparin gtt, INR 1.0 Cognitive decline: - Longstanding but according to the somewhat abrupt/worsening since about a month ; per neurosurgery could be progressive radiation effect; MRI brain pendingMRI department is trying to obtain written details with respect to ventriculostomy catheter; per discussion with his neurosurgeon, ventricular dilatation is chronic. - Neurology input noted and appreciated; agree, subclinical seizure seems less likely Carbamazepine level adjustments as noted below H/O astrocytoma: Follows at [facility]; continue follow-upnothing seen on CT MRI remains pending Seizure disorder: Continue carbamazepine, lacosamide and lamotrigine Carbamazepine level 12.9, slightly supratherapeutic, history of carbamazepine toxicity 03/17 carbamazepine reduced to 400mg twice daily 03/17 Vimpat increased to 100 mg twice daily, ligamental continued at current dosing. Appreciate neuro recs - Pt with hx of seizure c/b hemmorhage, high risk for seizure complications especially while on anticoagulation Hyperlipidemia: Continue simvastatin GERD (gastroesophageal reflux disease): Continue famotidine IVC thrombosis: IVC filter placed 1997 due to lower extremity DVT and inability anticoagulate in the setting of intracranial bleed, had a shunt placed as well Has bilateral lower extremity DVT with chronic DVT of the abdomen and pelvis CTAA/P: Thrombosis of distal vena cava with clot extension to filter, occlusion of left common iliac vein, and both internal iliac vein CTAchest: No PE Seen by vascular surgery, case discussed with specialist as above. Recommended to continue heparin, slow bridge to warfarin. Initially was recommended for DOAC, this was recommend against for reversibility. DOAC also not ideal in the setting of brain malignancy. Patient will follow up with Dr. Cantor, his primary vascular surgeon as outpatient for further care as long as he does well and remained stable with transition to warfarin above (2) Cognitive decline: (3) H/O astrocytoma: (4) Seizure disorder: (5) Hyperlipidemia: (6) GERD (gastroesophageal reflux disease): (7) IVC thrombosis: Admission and Anticipated Discharge Date Admission Date: March 17, 2022 Subjective Seen at the bedside with family this morning. Did well overnight, some waxing and waning confusion consistent with delirium but no neurodeficits or persistent neuro change. Is at his normal baseline this morning. No bleeding. No pain. No nausea/vomiting. Case has been discussed by family with their vascular surgeon Dr. Cantor who has been kept up-to-date on events. Would like report/discharge summary faxed at discharge to his office at [phone] with images burned were pushed if possible. Review of Systems Review of Systems: All systems reviewed & are unremarkable except as noted in Subjective Physical Exam Physical Exam: General: A&Ox3. NAD. Cooperative. Thought process linear, although patient occasionally impulsive and circumferential HEENT: Postoperative skull changes, healed, without signs of acute trauma. Vision and hearing grossly intact. Pulm: CTAB A&P. -wheezes, -rales, -rhonchi. Symmetrical chest rise. No increase in work of breathing. No respiratory distress. Cardiac: RRR, -mrg. Radial pulses intact and symmetrical. Abdominal: Nontender, nondistended, soft. BS present. 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 Somewhat impulsive movements, but with overall good coordination Results & Data Results & Data ([facility]) Vital Signs (Past 12 Hours) Vital Signs Temp Pulse Pulse Resp BP Pulse Ox O2 Del Method 03/18/22 11:28 36.9 C 98 H 19 135/86 94 Room Air 03/18/22 07:00 69 03/18/22 08:19 36.8 C 71 19 136/90 92 Room Air 03/18/22 03:00 36.6 C 68 18 138/90 95 Room Air PG Care Time/CCT Total # of Minutes Spent Total Time Spent with Patient: Total time spent is greater than 50% in coordination of care (as documented) at patient's floor/unit and/or counseling patient: Coding Level of Care Code 06635 Subseq Hosp Care Lvl 2 Diagnoses Acute deep vein thrombosis of both lower extremities I82.403 Cognitive decline R41.89 H/O astrocytoma Z85.841 Seizure disorder G40.909 Hyperlipidemia E78.5 GERD (gastroesophageal reflux disease) K21.9 IVC thrombosis I82.220
[2022-03-18] MEDS: WARFARIN SOD 5 MG TAB PO SCH (15:46)
[2022-03-18] MEDS: FAMOTIDINE 40 MG TABLET PO SCH (20:38)
[2022-03-19] MEDS: ACETAMINOPHEN 500 MG TAB PO SCH ×3 (02:24→18:13)
[2022-03-19 04:02] LABS: Basophils # (auto) 0.06 K/uL (0-0.2); Basophils % (auto) 0.9 %; Eosinophils # (auto) 0.26 K/uL (0-0.50); Eosinophils % (auto) 4.1 %; Hematocrit (blood only) 34.2 % (40.1-51.0); Hemoglobin 11.8 g/dl (14.0-18.0); Immature Granulocytes # (auto) 0.04 K/uL (0.00-0.02); Immature Granulocytes % (auto) 0.6 %; Lymphocytes % (auto) 28.4 %; Mean Corpuscular Hemoglobin 31.7 pg (25.0-34.0); Mean Corpuscular Hgb Conc 34.5 g/dL (32.0-36.0); Mean Corpuscular Volume 91.9 fL (80.0-100.0); Mean Platelet Volume 8.8 fL (9.4-12.4); Monocytes # (auto) 0.69 K/uL (0.24-0.82); Monocytes % (auto) 10.9 %; Neutrophils # (auto) 3.48 K/uL (1.4-6.5); Neutrophils % (auto) 55.1 %; Platelet Count 149 K/uL (130-400); RDW Coefficient of Variation 14.9 % (11.5-14.5); RDW Standard Deviation 50.1 fL (36.4-46.3); Red Blood Count 3.72 M/uL (4.63-6.08); White Blood Count 6.33 K/ul (4.8-10.8)
[2022-03-19 04:30] LABS: Albumin Globulin Ratio 1.6 (0.9-2); Albumin Level 3.9 gm/dl (3.4-5.0); Bilirubin,Total 0.6 mg/dl (0.2-1.0); Calcium 8.8 mg/dl (8.5-10.1); Creatinine Clr Calc Pharmacy 128.4 ml/min; Est GFR (African American) 112.9 ml/min; Est GFR (Non-African American) 97.4 ml/min; Globulin 2.4 gm/dl (2.5-4.0); Phosphorus 3.2 mg/dl (2.5-4.9); Total Protein 6.3 gm/dl (6.0-8.3)
[2022-03-19 04:32] LABS: Prothrombin Time 10.9 Seconds (9.0-12.0)
[2022-03-19] MEDS: LAMOTRIGINE 200 MG PO SCH ×2 (08:36→20:55)
[2022-03-19] MEDS: SIMVASTATIN 40 MG TAB PO SCH (08:36)
[2022-03-19] MEDS: LACOSAMIDE 50 MG TABLET PO SCH ×2 (08:36→20:52)
[2022-03-19] MEDS: LAMOTRIGINE 100 MG PO SCH ×2 (08:36→20:54)
--- NOTE | 2022-03-19 08:55 | Hospitalist Progress Note ---
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 Patterson at [facility]), CT scan seen by himlow risk and per discussion initiated on IV heparin low-dose protocol without bolus With respect to the filter itself and surrounding thrombosis, [facility]; both opined at present no treatment other than anticoagulation; at [place], they stated after he is on anticoagulation for 6 months feasibility of creating channels or looking at options of trying to remove the filter can be consideredthey will call him In the meantime, formal vascular surgery consulted Patient follows with John Cantor at [facility]' At discharge fax records/reports to his office at [phone]. Was initially targeting DOAC therapy, was seen by vascular surgery who did not recommend tPA due to extreme risk but does recommend anticoagulation with 3- month follow-up to look for recannulization of thrombus. DOAC was considered, recommended to continue Coumadin for reversibility rather than pursuing DOAC Discussed with coag clinic. Given risk of bleeding with prior bleeds will maintain on heparin and bring up slowly on warfarin while observing for signs of bleeding. Given risk of bleeding for intracranial bleed, reasonable to watch with initial load over the 48 at least, follow INR velocity and then transition to warfarin with potential low-dose Lovenox bridge if doing well. If bridged with Lovenox as outpatient would dose reduce to 0.75 mg/kg twice daily rather than 1mpk - Warfarin for now, 7.5x1, 5mg x2 days and adjust per normogram (working on average weekly dose from prior hx). - Continue anticoagulation until inr>2 Cognitive decline: - Longstanding but according to the somewhat abrupt/worsening since about a month ; per neurosurgery could be progressive radiation effect; MRI brain pendingMRI department is trying to obtain written details with respect to v entriculostomy catheter; per discussion with his neurosurgeon, ventricular dilatation is chronic. - Neurology input noted and appreciated; agree, subclinical seizure seems less likely Carbamazepine level adjustments as noted below H/O astrocytoma: Follows at [facility]; continue follow-upnothing seen on CT MRI remains pending Seizure disorder: Continue carbamazepine, lacosamide and lamotrigine Carbamazepine level 12.9, slightly supratherapeutic, history of carbamazepine toxicity 03/17 carbamazepine reduced to 400mg twice daily 03/17 Vimpat increased to 100 mg twice daily, ligamental continued at current dosing. 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 Recommended anticoagulation with heparin/lovneox bridge to warfarin. Patient will follow up with Dr. Cantor, his primary vascular surgeon as outpatient for further care as long as he does well and remained stable with transition to warfarin above (2) Cognitive decline: (3) H/O astrocytoma: (4) Seizure disorder: (5) Hyperlipidemia: (6) GERD (gastroesophageal reflux disease): (7) IVC thrombosis: Admission and Anticipated Discharge Date Admission Date: March 17, 2022 Subjective Patient is seen in the room in presence of his still has some right leg discomfort and swelling chronic left leg discomfort and swelling Chronic skin changes on his left leg Review of Systems Review of Systems: Mild distress and fatigue no headache, no visual changes no speech or swallowing issues no chest pain, pressure or palpitations no shortness of breath, cough or wheezes no abdominal pain, nausea or vomiting, diarrhea or constipation no dysuria, hematuria or frequency He has some right leg discomfort and swelling no back pain, CVA tenderness or radicular pain Chronic venous stasis skin changes on his left leg no focal signs of weakness or numbness or altered sensation no complaints of anxiety or depression. does have some cognitive delay from previous issues. Physical Exam Physical Exam: The patient appeared well nourished and normally developed. Vital signs as documented. Head exam is with history of previous craniotomy Neck is without JVD, thyromegaly, or carotid bruits. Lungs are clear to auscultation, no focal loss of breath sounds Cardiac exam, Rhythm is regular.. No murmurs, rubs or gallops. Abdominal exam reveals normal bowel sounds, soft non tender, no masses Extremities are bilateral edema left leg with chronic changes right leg appears to be more new patient has some tenderness in his legs Neurologic exam is alert and oriented, no focal loss of strength or sensation has some delayed cognition Skin is with chronic skin changes to left lower extremity Psychologically is without concerns for anxiety or depression.. Results & Data Results & Data ([facility]) Vital Signs (Past 12 Hours) Vital Signs Temp Pulse Pulse Resp BP BP Pulse Ox 03/19/22 08:29 98.1 F 81 20 147/92 H 92 03/19/22 07:34 69 03/18/22 22:25 72 03/19/22 03:08 97.7 F 68 20 118/76 94 03/18/22 22:57 98.2 F 64 20 127/82 95 O2 Del Method 03/19/22 08:29 03/19/22 07:34 03/18/22 22:25 03/19/22 03:08 Room Air 03/18/22 22:57 Room Air PG Care Time/CCT Total # of Minutes Spent Total Time Spent with Patient: Total time spent is greater than 50% in coordination of care (as documented) at patient's floor/unit and/or counseling patient: Coding Level of Care Code 89153 Subseq Hosp Care Lvl 3 Diagnoses Acute deep vein thrombosis of both lower extremities I82.403 Cognitive decline R41.89 H/O astrocytoma Z85.841 Seizure disorder G40.909 Hyperlipidemia E78.5 GERD (gastroesophageal reflux disease) K21.9 IVC thrombosis I82.220
[2022-03-19] MEDS: HEPARIN SODIUM/DEXTROSE 25,000 UNITS/500 ML BAG IV SCH (10:01)
[2022-03-19] MEDS: WARFARIN SOD 5 MG TAB PO SCH (15:52)
[2022-03-19] MEDS ORDERED: ENOXAPARIN 1 MG/KG SC SCH (19:00)
[2022-03-19] MEDS: ENOXAPARIN 100 MG/1ML SYR SQ SCH (20:52)
[2022-03-19] MEDS: FAMOTIDINE 40 MG TABLET PO SCH (20:54)
[2022-03-20] MEDS: ACETAMINOPHEN 500 MG TAB PO SCH ×3 (03:07→16:50)
[2022-03-20 04:49] LABS: Partial Thromboplastin Time 26.8 Seconds (21.0-31.0); Prothrombin Time 10.9 Seconds (9.0-12.0)
[2022-03-20 05:06] LABS: Albumin Globulin Ratio 1.5 (0.9-2); Bilirubin,Total 0.6 mg/dl (0.2-1.0); Calcium 9.1 mg/dl (8.5-10.1); Est GFR (African American) 110.3 ml/min; Est GFR (Non-African American) 95.1 ml/min; Globulin 2.6 gm/dl (2.5-4.0); Potassium 4.3 mmol/L (3.5-5.1); Total Protein 6.6 gm/dl (6.0-8.3)
[2022-03-20] MEDS: MoRPHine SULFATE 2 MG/ML CARP IV PRN ×2 (07:59→19:39)
[2022-03-20] MEDS: ENOXAPARIN 100 MG/1ML SYR SQ SCH ×2 (08:00→20:40)
[2022-03-20] MEDS: LAMOTRIGINE 200 MG PO SCH ×2 (08:02→20:42)
[2022-03-20] MEDS: SIMVASTATIN 40 MG TAB PO SCH (08:02)
[2022-03-20] MEDS: LAMOTRIGINE 100 MG PO SCH ×2 (08:03→20:42)
[2022-03-20] MEDS: LACOSAMIDE 50 MG TABLET PO SCH ×2 (09:27→20:43)
[2022-03-20] MEDS: PSYLLIUM or GUAR GUM FIBER POWDER PACKET PO SCH (10:58)
--- NOTE | 2022-03-20 11:18 | Ultrasound Report ---
US soft tissue groin HISTORY: 56 years-old Male Eval for hernia, LN or vascular abnormality acute pain of the right ingui nal tissues COMPARISON: CT abdomen and pelvis 03/15/2022, ultrasound study 03/14/2022. TECHNIQUE: Multiple real-time sonographic images of the right inguinal tissues were obtained assessin g grayscale appearance and color flow FINDINGS: No inguinal hernia identified. Likely reactive inguinal chain lymph nodes measure up to 1.2 x 0.7 x 1 .0 cm. Thrombus within the right greater saphenous and common femoral veins redemonstrated along with inguinal varicosities. IMPRESSION: 1. No inguinal hernia. 2. Superficial and deep venous thrombi redemonstrated. ACT 112: Negative or not required by law. The above report was generated using voice recognition software. It may contain grammatical, syntax o r spelling errors. Electronically signed by: Camilo Salgado M.D. 03/20/2022 11:15 AM
[2022-03-20] MEDS: WARFARIN SOD 7.5 MG TAB PO SCH (16:50)
--- NOTE | 2022-03-20 20:13 | Hospitalist Progress Note ---
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 Patterson at [facility]), CT scan seen by himlow risk and per discussion initiated on IV heparin low-dose protocol without bolus With respect to the filter itself and surrounding thrombosis, [facility]; both opined at present no treatment other than anticoagulation; at [place], they stated after he is on anticoagulation for 6 months feasibility of creating channels or looking at options of trying to remove the filter can be consideredthey will call him In the meantime, formal vascular surgery consulted Patient follows with John Cantor at [facility]' At discharge fax records/reports to his office at [phone]. Pt has some right groin pain u/s does not reveal any other irritations Was initially targeting DOAC therapy, was seen by vascular surgery who did not recommend tPA due to extreme risk but does recommend anticoagulation with 3- month follow-up to look for recannulization of thrombus. DOAC was considered, recommended to continue Coumadin for reversibility rather than pursuing DOAC Discussed with coag clinic. Given risk of bleeding with prior bleeds will maintain on heparin and bring up slowly on warfarin while observing for signs of bleeding. Given risk of bleeding for intracranial bleed, reasonable to watch with initial load over the 48 at least, follow INR velocity and then transition to warfarin with potential low-dose Lovenox bridge if doing well. If bridged with Lovenox as outpatient would dose reduce to 0.75 mg/kg twice daily rather than 1mpk - Warfarin for now, 7.5x1, 5mg x2 days and adjust per normogram (working on average weekly dose from prior hx). - Continue anticoagulation until inr>2 Cognitive decline: - Longstanding but according to the somewhat abrupt/worsening since about a month ; per neurosurgery could be progressive radiation effect; MRI brain [facility] department is trying to obtain written details with respect to ventriculostomy catheter; per discussion with his neurosurgeon, ventricular dilatation is chronic. - Neurology input noted and appreciated; agree, subclinical seizure seems less likely Carbamazepine level adjustments as noted below H/O astrocytoma: Follows at [facility]; continue follow-upnothing seen on CT MRI remains pending Seizure disorder: Continue carbamazepine, lacosamide and lamotrigine Carbamazepine level 12.9, slightly supratherapeutic, history of carbamazepine toxicity 03/17 carbamazepine reduced to 400mg twice daily 03/17 Vimpat increased to 100 mg twice daily, ligamental continued at current dosing. Appreciate neuro recs - Pt with hx of seizure c/b hemorrhage, high risk for seizure complications e specially while on anticoagulation Hyperlipidemia: Continue simvastatin GERD (gastroesophageal reflux disease): Continue famotidine IVC thrombosis: IVC filter placed 1997 due to lower extremity DVT and inability anticoagulate in the setting of intracranial bleed, had a shunt placed as well Has bilateral lower extremity DVT with chronic DVT of the abdomen and pelvis CTAA/P: Thrombosis of distal vena cava with clot extension to filter, occlusion of left common iliac vein, and both internal iliac vein CTAchest: No PE Seen by vascular surgery, case discussed with specialist as above. Recommended anticoagulation with heparin/lovneox bridge to warfarin. Patient will follow up with Dr. Cantor, his primary vascular surgeon as outpatient for further care as long as he does well and remained stable with transition to warfarin above (2) Cognitive decline: (3) H/O astrocytoma: (4) Seizure disorder: (5) Hyperlipidemia: (6) GERD (gastroesophageal reflux disease): (7) IVC thrombosis: Admission and Anticipated Discharge Date Admission Date: March 17, 2022 Subjective Patient is seen in the room in presence of his still has some right leg discomfort and swelling chronic left leg discomfort and swelling Chronic skin changes on his left leg Review of Systems Review of Systems: Mild distress and fatigue no headache, no visual changes no speech or swallowing issues no chest pain, pressure or palpitations no shortness of breath, cough or wheezes no abdominal pain, nausea or vomiting, diarrhea or constipation no dysuria, hematuria or frequency He has some right leg discomfort and swelling no back pain, CVA tenderness or radicular pain Chronic venous stasis skin changes on his left leg no focal signs of weakness or numbness or altered sensation no complaints of anxiety or depression. does have some cognitive delay from previous issues. Physical Exam Physical Exam: The patient appeared well nourished and normally developed. Vital signs as documented. Head exam is with history of previous craniotomy Neck is without JVD, thyromegaly, or carotid bruits. Lungs are clear to auscultation, no focal loss of breath sounds Cardiac exam, Rhythm is regular.. No murmurs, rubs or gallops. Abdominal exam reveals normal bowel sounds, soft non tender, no masses Extremities are bilateral edema left leg with chronic changes right leg appears to be more new patient has some tenderness in his legs Neurologic exam is alert and oriented, no focal loss of strength or sensation has some delayed cognition Skin is with chronic skin changes to left lower extremity Psychologically is without concerns for anxiety or depression.. Results & Data Results & Data ([facility]) Vital Signs (Past 12 Hours) Vital Signs Temp Pulse Pulse Resp BP Pulse Ox O2 Del Method 03/20/22 19:29 97.3 F L 80 20 134/64 97 Room Air 03/20/22 15:40 98.1 F 88 20 137/92 97 Room Air 03/20/22 10:35 67 PG Care Time/CCT Total # of Minutes Spent Total Time Spent with Patient: Total time spent is greater than 50% in coordination of care (as documented) at patient's floor/unit and/or counseling patient: Coding Level of Care Code 25362 Subseq Hosp Care Lvl 3 Diagnoses Acute deep vein thrombosis of both lower extremities I82.403 Cognitive decline R41.89 H/O astrocytoma Z85.841 Seizure disorder G40.909 Hyperlipidemia E78.5 GERD (gastroesophageal reflux disease) K21.9 IVC thrombosis I82.220
[2022-03-20] MEDS: FAMOTIDINE 40 MG TABLET PO SCH (20:43)
[2022-03-21] MEDS: ACETAMINOPHEN 500 MG TAB PO SCH ×3 (03:00→17:12)
[2022-03-21] MEDS: MoRPHine SULFATE 2 MG/ML CARP IV PRN (07:50)
[2022-03-21] MEDS: LAMOTRIGINE 100 MG PO SCH ×2 (08:47→20:51)
[2022-03-21] MEDS: LAMOTRIGINE 200 MG PO SCH ×2 (08:47→20:50)
[2022-03-21] MEDS: PSYLLIUM or GUAR GUM FIBER POWDER PACKET PO SCH (08:48)
[2022-03-21] MEDS: SIMVASTATIN 40 MG TAB PO SCH (08:48)
[2022-03-21] MEDS: ENOXAPARIN 100 MG/1ML SYR SQ SCH ×2 (08:49→20:50)
[2022-03-21 09:28] LABS: INR 1.1 (0.9-1.1); Prothrombin Time 11.3 Seconds (9.0-12.0)
[2022-03-21 09:40] LABS: Albumin Globulin Ratio 1.6 (0.9-2); Albumin Level 4.3 gm/dl (3.4-5.0); Bilirubin,Total 0.7 mg/dl (0.2-1.0); Calcium 9.3 mg/dl (8.5-10.1); Creatinine Clr Calc Pharmacy 114.5 ml/min; Globulin 2.7 gm/dl (2.5-4.0); Phosphorus 3.8 mg/dl (2.5-4.9); Potassium 3.7 mmol/L (3.5-5.1)
[2022-03-21] MEDS: LACOSAMIDE 50 MG TABLET PO SCH ×2 (10:20→21:03)
[2022-03-21] MEDS: WARFARIN SOD 7.5 MG TAB PO SCH (17:43)
--- NOTE | 2022-03-21 17:48 | Hospitalist Progress Note ---
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 Patterson at [facility]), CT scan seen by himlow risk and per discussion initiated on IV heparin low-dose protocol without bolus With respect to the filter itself and surrounding thrombosis, [facility]; both opined at present no treatment other than anticoagulation; at [place], they stated after he is on anticoagulation for 6 months feasibility of creating channels or looking at options of trying to remove the filter can be consideredthey will call him In the meantime, formal vascular surgery consulted Patient follows with John Cantor at [facility]' At discharge fax records/reports to his office at [phone]. Pt has some right groin pain u/s does not reveal any other irritations Was initially targeting DOAC therapy, was seen by vascular surgery who did not recommend tPA due to extreme risk but does recommend anticoagulation with 3- month follow-up to look for recannulization of thrombus. DOAC was considered, recommended to continue Coumadin for reversibility rather than pursuing DOAC Discussed with coag clinic. Given risk of bleeding with prior bleeds will maintain on heparin and bring up slowly on warfarin while observing for signs of bleeding. Given risk of bleeding for intracranial bleed, reasonable to watch with initial load over the 48 at least, follow INR velocity and then transition to warfarin with potential low-dose Lovenox bridge if doing well. If bridged with Lovenox as outpatient would dose reduce to 0.75 mg/kg twice daily rather than 1mpk - Warfarin for now, 7.5x1, 5mg x2 days and adjust per normogram (working on average weekly dose from prior hx). - Continue anticoagulation until inr>2 Cognitive decline: - Longstanding but according to the somewhat abrupt/worsening since about a month ; per neurosurgery could be progressive radiation effect; MRI brain [facility] department is trying to obtain written details with respect to ventriculostomy catheter; per discussion with his neurosurgeon, ventricular dilatation is chronic. - Neurology input noted and appreciated; agree, subclinical seizure seems less likely Carbamazepine level adjustments as noted below H/O astrocytoma: Follows at [facility]; continue follow-upnothing seen on CT MRI remains pending Seizure disorder: Continue carbamazepine, lacosamide and lamotrigine Carbamazepine level 12.9, slightly supratherapeutic, history of carbamazepine toxicity 03/17 carbamazepine reduced to 400mg twice daily 03/17 Vimpat increased to 100 mg twice daily, ligamental continued at current dosing. Appreciate neuro recs - Pt with hx of seizure c/b hemorrhage, high risk for seizure complications e specially while on anticoagulation Hyperlipidemia: Continue simvastatin GERD (gastroesophageal reflux disease): Continue famotidine IVC thrombosis: IVC filter placed 1997 due to lower extremity DVT and inability anticoagulate in the setting of intracranial bleed, had a shunt placed as well Has bilateral lower extremity DVT with chronic DVT of the abdomen and pelvis CTAA/P: Thrombosis of distal vena cava with clot extension to filter, occlusion of left common iliac vein, and both internal iliac vein CTAchest: No PE Seen by vascular surgery, case discussed with specialist as above. Recommended anticoagulation with heparin/lovneox bridge to warfarin. Patient will follow up with Dr. Cantor, his primary vascular surgeon as outpatient for further care as long as he does well and remained stable with transition to warfarin above (2) Cognitive decline: (3) H/O astrocytoma: (4) Seizure disorder: (5) Hyperlipidemia: (6) GERD (gastroesophageal reflux disease): (7) IVC thrombosis: Admission and Anticipated Discharge Date Admission Date: March 17, 2022 Subjective Patient is seen in the room in presence of his still has some right leg discomfort and swelling chronic left leg discomfort and swelling Chronic skin changes on his left leg at the bedside and updated Review of Systems Review of Systems: Mild distress and fatigue no headache, no visual changes no speech or swallowing issues no chest pain, pressure or palpitations no shortness of breath, cough or wheezes no abdominal pain, nausea or vomiting, diarrhea or constipation no dysuria, hematuria or frequency He has some right leg discomfort and swelling no back pain, CVA tenderness or radicular pain Chronic venous stasis skin changes on his left leg no focal signs of weakness or numbness or altered sensation no complaints of anxiety or depression. does have some cognitive delay from previous issues. Physical Exam Physical Exam: The patient appeared well nourished and normally developed. Vital signs as documented. Head exam is with history of previous craniotomy Neck is without JVD, thyromegaly, or carotid bruits. Lungs are clear to auscultation, no focal loss of breath sounds Cardiac exam, Rhythm is regular.. No murmurs, rubs or gallops. Abdominal exam reveals normal bowel sounds, soft non tender, no masses Extremities are bilateral edema left leg with chronic changes right leg appears to be more new patient has some tenderness in his legs Neurologic exam is alert and oriented, no focal loss of strength or sensation has some delayed cognition Skin is with chronic skin changes to left lower extremity Psychologically is without concerns for anxiety or depression.. Results & Data Results & [facility] ([facility]) Vital Signs (Past 12 Hours) Vital Signs Temp Pulse Resp BP Pulse Ox O2 Del Method 03/21/22 16:00 98.4 F 77 18 138/95 95 Room Air PG Care Time/CCT Total # of Minutes Spent Total Time Spent with Patient: Total time spent is greater than 50% in coordination of care (as documented) at patient's floor/unit and/or counseling patient: Coding Level of Care Code 28482 Subseq Hosp Care Lvl 2 Diagnoses Acute deep vein thrombosis of both lower extremities I82.403 Cognitive decline R41.89 H/O astrocytoma Z85.841 Seizure disorder G40.909 Hyperlipidemia E78.5 GERD (gastroesophageal reflux disease) K21.9 IVC thrombosis I82.220
[2022-03-21] MEDS: FAMOTIDINE 40 MG TABLET PO SCH (20:52)
[2022-03-22] MEDS: ACETAMINOPHEN 500 MG TAB PO SCH ×3 (01:42→18:14)
[2022-03-22] MEDS ORDERED: BENZONATATE 100 MG CAPSULE PO PRN (03:40)
[2022-03-22 06:26] LABS: Hemoglobin 12.6 g/dl (14.0-18.0); Mean Corpuscular Hemoglobin 31.5 pg (25.0-34.0); Mean Corpuscular Hgb Conc 34.1 g/dL (32.0-36.0); Mean Corpuscular Volume 92.5 fL (80.0-100.0); Mean Platelet Volume 9.1 fL (9.4-12.4); Platelet Count 176 K/uL (130-400); RDW Coefficient of Variation 14.9 % (11.5-14.5); RDW Standard Deviation 50.2 fL (36.4-46.3); White Blood Count 6.46 K/ul (4.8-10.8)
[2022-03-22 06:34] LABS: INR 1.1 (0.9-1.1); Prothrombin Time 12.1 Seconds (9.0-12.0)
[2022-03-22 07:00] LABS: Albumin Globulin Ratio 1.6 (0.9-2); Albumin Level 4.2 gm/dl (3.4-5.0); Bilirubin,Total 0.7 mg/dl (0.2-1.0); Calcium 9.3 mg/dl (8.5-10.1); Creatinine Clr Calc Pharmacy 123.5 ml/min; Est GFR (African American) 110.8 ml/min; Est GFR (Non-African American) 95.6 ml/min; Globulin 2.6 gm/dl (2.5-4.0); Phosphorus 3.8 mg/dl (2.5-4.9); Potassium 4.3 mmol/L (3.5-5.1); Total Protein 6.8 gm/dl (6.0-8.3)
[2022-03-22] MEDS: SIMVASTATIN 40 MG TAB PO SCH (08:04)
[2022-03-22] MEDS: LACOSAMIDE 50 MG TABLET PO SCH ×2 (08:04→20:28)
[2022-03-22] MEDS: MoRPHine SULFATE 2 MG/ML CARP IV PRN (08:04)
[2022-03-22] MEDS: ENOXAPARIN 100 MG/1ML SYR SQ SCH ×2 (08:05→20:31)
[2022-03-22] MEDS: LAMOTRIGINE 200 MG PO SCH ×2 (08:06→20:36)
[2022-03-22] MEDS: PSYLLIUM or GUAR GUM FIBER POWDER PACKET PO SCH (08:07)
[2022-03-22] MEDS: LAMOTRIGINE 100 MG PO SCH ×2 (08:07→20:35)
[2022-03-22] MEDS: WARFARIN SOD 7.5 MG TAB PO SCH (16:17)
--- NOTE | 2022-03-22 17:05 | Hospitalist Progress Note ---
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 Patterson at [facility]), CT scan seen by himlow risk and per discussion initiated on IV heparin low-dose protocol without bolus With respect to the filter itself and surrounding thrombosis, [facility] both opined at present no treatment other than anticoagulation; at [place], they stated after he is on anticoagulation for 6 months feasibility of creating channels or looking at options of trying to remove the filter can be consideredthey will call him Patient follows with John Cantor at [facility]' At discharge fax records/reports to his office at [phone]. Pt has some right groin pain u/s does not reveal any other irritations Was initially targeting DOAC therapy, was seen by vascular surgery who did not recommend tPA due to extreme risk but does recommend anticoagulation with 3- month follow-up to look for recannulization of thrombus. DOAC was considered, recommended to continue Coumadin for reversibility rather than pursuing DOAC Discussed with coag clinic. Given risk of bleeding with prior bleeds will maintain on heparin and bring up slowly on warfarin while observing for signs of bleeding. Given risk of bleeding for intracranial bleed, reasonable to watch with initial load over the 48 at least, follow INR velocity and then transition to warfarin with potential low-dose Lovenox bridge if doing well. If bridged with Lovenox as outpatient would dose reduce to 0.75 mg/kg twice daily rather th an 1mpk - Warfarin for now, 7.5x1, 5mg x2 days and adjust per normogram (working on average weekly dose from prior hx). - Continue anticoagulation until inr>2 Cognitive decline: - Longstanding but according to the somewhat abrupt/worsening since about a month ; per neurosurgery could be progressive radiation effect; MRI brain pendingI department is trying to obtain written details with respect to ventriculostomy catheter; per discussion with his neurosurgeon, ventricular dilatation is chronic. - Neurology input noted and appreciated; agree, subclinical seizure seems less likely Carbamazepine level adjustments H/O astrocytoma: Follows at [facility]; continue follow-upnothing seen on CT MRI remains pending Seizure disorder: Continue carbamazepine, lacosamide and lamotrigine Carbamazepine level 12.9, slightly supratherapeutic, history of carbamazepine toxicity 03/17 carbamazepine reduced to 400mg twice daily 03/17 Vimpat increased to 100 mg twice daily, ligamental continued at current dosing. 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 Recommended anticoagulation with heparin/lovneox bridge to warfarin. Patient will follow up with Dr. Cantor, his primary vascular surgeon as outpatient for further care as long as he does well and remained stable with transition to warfarin above (2) Cognitive decline: (3) H/O astrocytoma: (4) Seizure disorder: (5) Hyperlipidemia: (6) GERD (gastroesophageal reflux disease): (7) IVC thrombosis: Admission and Anticipated Discharge Date Admission Date: March 17, 2022 Subjective Patient is seen in the room in presence of his still has some right leg discomfort and swelling chronic left leg discomfort and swelling Chronic skin changes on his left leg mom and dad at the bedside and updated Review of Systems Review of Systems: Mild distress and fatigue no headache, no visual changes no speech or swallowing issues no chest pain, pressure or palpitations no shortness of breath, cough or wheezes no abdominal pain, nausea or vomiting, diarrhea or constipation no dysuria, hematuria or frequency He has some right leg discomfort and swelling no back pain, CVA tenderness or radicular pain Chronic venous stasis skin changes on his left leg no focal signs of weakness or numbness or altered sensation no complaints of anxiety or depression. does have some cognitive delay from previous issues. Physical Exam Physical Exam: The patient appeared well nourished and normally developed. Vital signs as documented. Head exam is with history of previous craniotomy Neck is without JVD, thyromegaly, or carotid bruits. Lungs are clear to auscultation, no focal loss of breath sounds Cardiac exam, Rhythm is regular.. No murmurs, rubs or gallops. Abdominal exam reveals normal bowel sounds, soft non tender, no masses Extremities are bilateral edema left leg with chronic changes right leg appears to be more new patient has some tenderness in his legs Neurologic exam is alert and oriented, no focal loss of strength or sensation has some delayed cognition Skin is with chronic skin changes to left lower extremity Psychologically is without concerns for anxiety or depression.. Results & Data Results & Data ([facility]) Vital Signs (Past 12 Hours) Vital Signs Temp Pulse Resp BP Pulse Ox O2 Del Method 03/22/22 15:54 98.1 F 82 18 137/88 96 Room Air 03/22/22 08:08 98.1 F 64 19 127/84 94 Room Air PG Care Time/CCT Total # of Minutes Spent Total Time Spent with Patient: Total time spent is greater than 50% in coordination of care (as documented) at patient's floor/unit and/or counseling patient: Coding Level of Care Code 25585 Subseq Hosp Care Lvl 2 Diagnoses Acute deep vein thrombosis of both lower extremities I82.403 Cognitive decline R41.89 H/O astrocytoma Z85.841 Seizure disorder G40.909 Hyperlipidemia E78.5 GERD (gastroesophageal reflux disease) K21.9 IVC thrombosis I82.220
[2022-03-22] MEDS ORDERED: WARFARIN SOD 2.5 MG TAB PO ONE (17:06)
[2022-03-22] MEDS: FAMOTIDINE 40 MG TABLET PO SCH (20:30)
[2022-03-23] MEDS: ACETAMINOPHEN 500 MG TAB PO SCH ×3 (01:46→18:20)
[2022-03-23] MEDS: ENOXAPARIN 100 MG/1ML SYR SQ SCH ×2 (08:11→19:36)
[2022-03-23] MEDS: PSYLLIUM or GUAR GUM FIBER POWDER PACKET PO SCH (08:12)
[2022-03-23] MEDS: SIMVASTATIN 40 MG TAB PO SCH (08:12)
[2022-03-23] MEDS: LAMOTRIGINE 100 MG PO SCH ×2 (08:13→19:36)
[2022-03-23] MEDS: LAMOTRIGINE 200 MG PO SCH ×2 (08:13→19:37)
[2022-03-23] MEDS: LACOSAMIDE 50 MG TABLET PO SCH ×2 (09:31→20:08)
[2022-03-23] MEDS: WARFARIN SOD 10 MG TAB PO SCH (16:51)
--- NOTE | 2022-03-23 16:57 | Hospitalist Progress Note ---
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 Patterson at [facility]), CT scan seen by himlow risk and per discussion initiated on IV heparin low-dose protocol without bolus With respect to the filter itself and surrounding thrombosis, [facility] both opined at present no treatment other than anticoagulation; at [place], they stated after he is on anticoagulation for 6 months feasibility of creating channels or looking at options of trying to remove the filter can be consideredthey will call him Patient follows with John Cantor at [facility]' At discharge fax records/reports to his office at [phone]. Pt has some right groin pain u/s does not reveal any other irritations Was initially targeting DOAC therapy, was seen by vascular surgery who did not recommend tPA due to extreme risk but does recommend anticoagulation with 3- month follow-up to look for recannulization of thrombus. DOAC was considered, recommended to continue Coumadin for reversibility rather than pursuing DOAC Discussed with coag clinic. Given risk of bleeding with prior bleeds will maintain on heparin and bring up slowly on warfarin while observing for signs of bleeding. Given risk of bleeding for intracranial bleed, reasonable to watch with initial load over the 48 at least, follow INR velocity and then transition to warfarin with potential low-dose Lovenox bridge if doing well. If bridged with Lovenox as outpatient would dose reduce to 0.75 mg/kg twice daily rather th an 1mpk - Warfarin for now, 7.5x1, 5mg x2 days and adjust per normogram (working on average weekly dose from prior hx). - Continue anticoagulation until inr>2 Cognitive decline: - Longstanding but according to the somewhat abrupt/worsening since about a month ; per neurosurgery could be progressive radiation effect; MRI brain pendingI department is trying to obtain written details with respect to ventriculostomy catheter; per discussion with his neurosurgeon, ventricular dilatation is chronic. - Neurology input noted and appreciated; agree, subclinical seizure seems less likely Carbamazepine level adjustments H/O astrocytoma: Follows at [facility]; continue follow-upnothing seen on CT MRI remains pending Seizure disorder: Continue carbamazepine, lacosamide and lamotrigine Carbamazepine level 12.9, slightly supratherapeutic, history of carbamazepine toxicity 03/17 carbamazepine reduced to 400mg twice daily 03/17 Vimpat increased to 100 mg twice daily, ligamental continued at current dosing. 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 Recommended anticoagulation with heparin/lovneox bridge to warfarin. Patient will follow up with Dr. Cantor, his primary vascular surgeon as outpatient for further care as long as he does well and remained stable with transition to warfarin above (2) Cognitive decline: (3) H/O astrocytoma: (4) Seizure disorder: (5) Hyperlipidemia: (6) GERD (gastroesophageal reflux disease): (7) IVC thrombosis: Admission and Anticipated Discharge Date Admission Date: March 17, 2022 Subjective Patient is seen in the room in presence of his still has some right leg discomfort and swelling chronic left leg discomfort and swelling Chronic skin changes on his left leg mom and dad at the bedside and updated Review of Systems Review of Systems: Mild distress and fatigue no headache, no visual changes no speech or swallowing issues no chest pain, pressure or palpitations no shortness of breath, cough or wheezes no abdominal pain, nausea or vomiting, diarrhea or constipation no dysuria, hematuria or frequency He has some right leg discomfort and swelling no back pain, CVA tenderness or radicular pain Chronic venous stasis skin changes on his left leg no focal signs of weakness or numbness or altered sensation no complaints of anxiety or depression. does have some cognitive delay from previous issues. Physical Exam Physical Exam: The patient appeared well nourished and normally developed. Vital signs as documented. Head exam is with history of previous craniotomy Neck is without JVD, thyromegaly, or carotid bruits. Lungs are clear to auscultation, no focal loss of breath sounds Cardiac exam, Rhythm is regular.. No murmurs, rubs or gallops. Abdominal exam reveals normal bowel sounds, soft non tender, no masses Extremities are bilateral edema left leg with chronic changes right leg appears to be more new patient has some tenderness in his legs Neurologic exam is alert and oriented, no focal loss of strength or sensation has some delayed cognition Skin is with chronic skin changes to left lower extremity Psychologically is without concerns for anxiety or depression.. Results & Data [facility] ([facility]) Vital Signs (Past 12 Hours) Vital Signs Temp Pulse Resp BP BP Pulse Ox O2 Del Method 03/23/22 15:53 97.9 F 72 18 134/79 98 Room Air 03/23/22 07:44 98.4 F 68 16 129/77 96 Room Air PG Care Time/CCT Total # of Minutes Spent Total Time Spent with Patient: Total time spent is greater than 50% in coordination of care (as documented) at patient's floor/unit and/or counseling patient: Coding Level of Care Code 93621 Subseq Hosp Care Lvl 2 Diagnoses Acute deep vein thrombosis of both lower extremities I82.403 Cognitive decline R41.89 H/O astrocytoma Z85.841 Seizure disorder G40.909 Hyperlipidemia E78.5 GERD (gastroesophageal reflux disease) K21.9 IVC thrombosis I82.220
[2022-03-23] MEDS: oxyCODONE HCL IR 5 MG TAB (IMMEDIATE RELEASE) PO PRN (19:35)
[2022-03-23] MEDS: FAMOTIDINE 40 MG TABLET PO SCH (19:36)
[2022-03-24] MEDS: ACETAMINOPHEN 500 MG TAB PO SCH ×3 (01:44→18:06)
[2022-03-24 06:27] LABS: INR 1.3 (0.9-1.1); Prothrombin Time 13.4 Seconds (9.0-12.0)
[2022-03-24 07:04] LABS: Calcium 9.2 mg/dl (8.5-10.1); Creatinine Clr Calc Pharmacy 115.7 ml/min; Est GFR (African American) 103.3 ml/min; Est GFR (Non-African American) 89.1 ml/min; Potassium 4.3 mmol/L (3.5-5.1)
[2022-03-24] MEDS: oxyCODONE HCL IR 5 MG TAB (IMMEDIATE RELEASE) PO PRN ×2 (07:52→21:39)
[2022-03-24] MEDS: ENOXAPARIN 100 MG/1ML SYR SQ SCH ×2 (07:59→21:14)
[2022-03-24] MEDS: PSYLLIUM or GUAR GUM FIBER POWDER PACKET PO SCH (08:38)
[2022-03-24] MEDS: LACOSAMIDE 50 MG TABLET PO SCH ×2 (08:38→21:34)
[2022-03-24] MEDS: SIMVASTATIN 40 MG TAB PO SCH (08:38)
[2022-03-24] MEDS: LAMOTRIGINE 100 MG PO SCH ×2 (08:39→21:11)
[2022-03-24] MEDS: LAMOTRIGINE 200 MG PO SCH ×2 (08:39→21:11)
[2022-03-24] MEDS: WARFARIN SOD 10 MG TAB PO SCH (17:02)
--- NOTE | 2022-03-24 18:08 | Hospitalist Progress Note ---
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 Patterson at [facility]), CT scan seen by himlow risk and per discussion initiated on IV heparin low-dose protocol without bolus With respect to the filter itself and surrounding thrombosis, [facility] both opined at present no treatment other than anticoagulation; at [place], they stated after he is on anticoagulation for 6 months feasibility of creating channels or looking at options of trying to remove the filter can be consideredthey will call him Patient follows with John Cantor at [facility] At discharge fax records/reports to his office at [phone]. Pt has some right groin pain u/s does not reveal any other irritations Was initially targeting DOAC therapy, was seen by vascular surgery who did not recommend tPA due to extreme risk but does recommend anticoagulation with 3- month follow-up to look for recannulization of thrombus. DOAC was considered, recommended to continue Coumadin for reversibility rather than pursuing DOAC Discussed with coag clinic. Given risk of bleeding with prior bleeds will maintain on heparin and bring up slowly on warfarin while observing for signs of bleeding. Given risk of bleeding for intracranial bleed, reasonable to watch with initial load over the 48 at least, follow INR velocity and then transition to warfarin with potential low-dose Lovenox bridge if doing well. If bridged with Lovenox as outpatient would dose reduce to 0.75 mg/kg twice daily rather th an 1mpk -Lovenox 90 mg bid started 03/19 - Warfarin 7.5x 3 days with little change so increased to 10 mg on the - Continue anticoagulation until inr>2 Cognitive decline: - Longstanding but according to the somewhat abrupt/worsening since about a month ; per neurosurgery could be progressive radiation effect; MRI brain pendingI department is trying to obtain written details with respect to ventriculostomy catheter; per discussion with his neurosurgeon, ventricular dilatation is chronic. - Neurology input noted and appreciated; agree, subclinical seizure seems less likely Carbamazepine level adjustments H/O astrocytoma: Follows at [facility]; continue follow-upnothing seen on CT MRI remains pending Seizure disorder: Continue carbamazepine, lacosamide and lamotrigine Carbamazepine level 12.9, slightly supratherapeutic, history of carbamazepine toxicity 03/17 carbamazepine reduced to 400mg twice daily 03/17 Vimpat increased to 100 mg twice daily, ligamental continued at current dosing. 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 Recommended anticoagulation with heparin/lovneox bridge to warfarin. Patient will follow up with Dr. Cantor, his primary vascular surgeon as outpatient for further care as long as he does well and remained stable with transition to warfarin above (2) Cognitive decline: (3) H/O astrocytoma: (4) Seizure disorder: (5) Hyperlipidemia: (6) GERD (gastroesophageal reflux disease): (7) IVC thrombosis: Admission and Anticipated Discharge Date Admission Date: March 17, 2022 Subjective Patient is seen in the room in presence of his still has some right leg discomfort and swelling chronic left leg discomfort and swelling Chronic skin changes on his left leg mom and dad at the bedside and updated PT INR has been stubborn to increase has been on 10 mg a day of coumadin! Review of Systems Review of Systems: Mild distress and fatigue no headache, no visual changes no speech or swallowing issues no chest pain, pressure or palpitations no shortness of breath, cough or wheezes no abdominal pain, nausea or vomiting, diarrhea or constipation no dysuria, hematuria or frequency He has some right leg discomfort and swelling no back pain, CVA tenderness or radicular pain Chronic venous stasis skin changes on his left leg no focal signs of weakness or numbness or altered sensation no complaints of anxiety or depression. does have some cognitive delay from previous issues. Physical Exam Physical Exam: The patient appeared well nourished and normally developed. Vital signs as documented. Head exam is with history of previous craniotomy Neck is without JVD, thyromegaly, or carotid bruits. Lungs are clear to auscultation, no focal loss of breath sounds Cardiac exam, Rhythm is regular.. No murmurs, rubs or gallops. Abdominal exam reveals normal bowel sounds, soft non tender, no masses Extremities are bilateral edema left leg with chronic changes right leg appears to be more new patient has some tenderness in his legs Neurologic exam is alert and oriented, no focal loss of strength or sensation has some delayed cognition Skin is with chronic skin changes to left lower extremity Psychologically is without concerns for anxiety or depression.. Results & Data Results & Data ([facility]) Vital Signs (Past 12 Hours) Vital Signs Temp Pulse Resp BP Pulse Ox O2 Del Method 03/24/22 15:08 97.9 F 84 20 121/76 96 Room Air 03/24/22 06:56 98.1 F 61 16 127/80 97 Room Air PG Care Time/CCT Total # of Minutes Spent Total Time Spent with Patient: Total time spent is greater than 50% in coordination of care (as documented) at patient's floor/unit and/or counseling patient: Coding Level of Care Code 61161 Subseq Hosp Care Lvl 2 Diagnoses Acute deep vein thrombosis of both lower extremities I82.403 Cognitive decline R41.89 H/O astrocytoma Z85.841 Seizure disorder G40.909 Hyperlipidemia E78.5 GERD (gastroesophageal reflux disease) K21.9 IVC thrombosis I82.220
[2022-03-24] MEDS: FAMOTIDINE 40 MG TABLET PO SCH (21:11)
[2022-03-25] MEDS: ACETAMINOPHEN 500 MG TAB PO SCH ×4 (02:00→21:50)
[2022-03-25 07:26] LABS: INR 1.3 (0.9-1.1); Prothrombin Time 13.3 Seconds (9.0-12.0)
[2022-03-25] MEDS: LAMOTRIGINE 100 MG PO SCH ×2 (08:34→19:58)
[2022-03-25] MEDS: LAMOTRIGINE 200 MG PO SCH ×2 (08:34→19:58)
[2022-03-25] MEDS: LACOSAMIDE 50 MG TABLET PO SCH ×2 (08:36→21:51)
[2022-03-25] MEDS: SIMVASTATIN 40 MG TAB PO SCH (08:36)
[2022-03-25] MEDS: PSYLLIUM or GUAR GUM FIBER POWDER PACKET PO SCH (08:37)
[2022-03-25] MEDS: ENOXAPARIN 100 MG/1ML SYR SQ SCH ×2 (08:41→19:57)
--- NOTE | 2022-03-25 17:00 | Hospitalist Progress Note ---
Date of Service March 25, 2022 Assessment & Plan (1) Acute deep vein thrombosis of both lower extremities: Plan: See prior notes, extensive discussion with neurosurgerylow risk of anticoagulation; Resumed carenoted plan for Coumadin so that it can be reversed were there to be intracranial bleed; will not alter course Of note, following first DVT was on anticoagulation and about 3 to 4 months later did have bleeding (2) Cognitive decline: Plan: Longstanding but according to the somewhat abrupt/worsening since about a month; per neurosurgery could be progressive radiation effect; per discussion with his neurosurgeon, ventricular dilatation is chronic. - Neurology input noted and appreciated; agree, subclinical seizure seems less likely Anticonvulsants adjusted per neurology recommendations At present outpatient follow-up with neurology and neurosurgery (3) H/O astrocytoma: Plan: Neurosurgery follow-up (4) Seizure disorder: Plan: as above (5) Hyperlipidemia: Plan: Continue statin (6) GERD (gastroesophageal reflux disease): Plan: Nonactive issuecontinue current treatment (7) IVC thrombosis: Plan: See prior note; per current discussion during this admission with [facility] [place] [facility] no intervention; later consider stenting after about 3 months and reimaging; vascular surgery follow-up Admission and Anticipated Discharge Date Admission Date: March 17, 2022 Subjective Follow-up of original presentation with lower extremity pain and related ambulatory dysfunctionoverall better; no new complaints Physical Exam Physical Exam: Constitutional and general: No acute distress, looks biologic age Head and face: No puffiness, atraumatic Eyes: No scleral icterus, extraocular movements normal Neck: Supple, no JVD Musculoskeletal: No acute joint swelling, no bony abnormalities Skin/dermatologic/integument: No rash, no purpura Hematologic and lymphatic: pallor +, no petechia Gastrointestinal/abdomen: Nondistended, soft, nonacute Neurologic: Cranial nerves intact, nonfocal; cognitive deficit apparent Psychiatry: Awake, alert, pleasant, communicative Cardiovascular: Heart rhythm regular, no rub, no murmur, no gallop Respiratory: Chest movements equal, no use of accessory muscles, no adventitious sounds Extremities: Bilateral edema with stasis changes Results & Data Results & Data ([facility]) Vital Signs (Past 12 Hours) Vital Signs Temp Pulse Resp BP Pulse Ox O2 Del Method 03/25/22 15:20 36.6 C 74 16 126/83 95 Room Air 03/25/22 07:09 36.4 C L 68 16 126/83 97 Room Air 03/25/22 05:37 36.3 C L 64 16 111/70 96 Laboratory Results Laboratory Results - last 24 hr 03/25/22 06:19 PT 13.3 H INR 1.3 H PG Care Time/CCT Total # of Minutes Spent Total Time Spent with Patient: Total time spent is greater than 50% in coordination of care (as documented) at patient's floor/unit and/or counseling patient: Coding Level of Care Code 75906 Subseq Hosp Care Lvl 2 Diagnoses Acute deep vein thrombosis of both lower extremities I82.403 Cognitive decline R41.89 H/O astrocytoma Z85.841 Seizure disorder G40.909 Hyperlipidemia E78.5 GERD (gastroesophageal reflux disease) K21.9 IVC thrombosis I82.220
[2022-03-25] MEDS: WARFARIN SOD 10 MG TAB PO SCH (17:05)
[2022-03-25] MEDS ORDERED: CALCIUM CARBONATE 500 MG CHEWABLE TAB PO ONE ×2 (17:10→17:19)
[2022-03-25] MEDS: PANTOprazole 40 MG TAB PO SCH (18:01)
[2022-03-25] MEDS: FAMOTIDINE 40 MG TABLET PO SCH (19:58)
[2022-03-26] MEDS: ACETAMINOPHEN 500 MG TAB PO SCH ×3 (06:12→21:17)
[2022-03-26 07:07] LABS: INR 1.4 (0.9-1.1); Prothrombin Time 14.2 Seconds (9.0-12.0)
[2022-03-26] MEDS: ENOXAPARIN 100 MG/1ML SYR SQ SCH ×2 (09:23→21:15)
[2022-03-26] MEDS: LAMOTRIGINE 200 MG PO SCH ×2 (09:24→21:14)
[2022-03-26] MEDS: LAMOTRIGINE 100 MG PO SCH ×2 (09:24→21:14)
[2022-03-26] MEDS: PANTOprazole 40 MG TAB PO SCH (09:25)
[2022-03-26] MEDS: PSYLLIUM or GUAR GUM FIBER POWDER PACKET PO SCH (09:25)
[2022-03-26] MEDS: SIMVASTATIN 40 MG TAB PO SCH (09:25)
[2022-03-26] MEDS: LACOSAMIDE 50 MG TABLET PO SCH ×2 (10:44→21:13)
[2022-03-26] MEDS: oxyCODONE HCL IR 5 MG TAB (IMMEDIATE RELEASE) PO PRN (11:30)
--- NOTE | 2022-03-26 15:43 | Hospitalist Progress Note ---
Date of Service March 26, 2022 Assessment & Plan (1) Acute deep vein thrombosis of both lower extremities: Plan: See prior notes, extensive discussion with neurosurgerylow risk of anticoagulation; After extensive prior discussion by prior treating team on Coumadin so that it can be reversed were there to be intracranial bleed; will not alter course Of note, following first DVT was on anticoagulation and about 3 to 4 months later did have bleeding INR slowly budging upreluctant to escalate dose and then overshootno change today (2) Cognitive decline: Plan: Longstanding but according to the somewhat abrupt/worsening since about a month; per neurosurgery could be progressive radiation effect; per discussion with his neurosurgeon, ventricular dilatation is chronic. 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; per current discussion during this admission with [facility] [place] and [facility] no intervention at present later consider stenting after about 3 months and reimaging; vascular surgery follow-up Plan Awaiting reasonable stability of INR Admission and Anticipated Discharge Date Admission Date: March 17, 2022 Subjective Follow-up of original presentation with lower extremity pain and related ambulatory dysfunctionoverall better; no new complaints Physical Exam Physical Exam: Constitutional and general: No acute distress, looks biologic age Head and face: No puffiness, atraumatic Eyes: No scleral icterus, extraocular movements normal Neck: Supple, no JVD Musculoskeletal: No acute joint swelling, no bony abnormalities Skin/dermatologic/integument: No rash, no purpura Hematologic and lymphatic: pallor +, no petechia Gastrointestinal/abdomen: Nondistended, soft, nonacute Neurologic: Cranial nerves intact, nonfocal; cognitive deficit apparent Psychiatry: Awake, alert, pleasant, communicative Cardiovascular: Heart rhythm regular, no rub, no murmur, no gallop Respiratory: Chest movements equal, no use of accessory muscles, no adventitious sounds Extremities: Bilateral edema with stasis changes Results & Data Results & Data ([facility]) Vital Signs (Past 12 Hours) Vital Signs Temp Pulse Resp BP BP Pulse Ox O2 Del Method 03/26/22 15:36 36.5 C 67 20 102/63 97 Room Air 03/26/22 11:26 85 18 131/89 98 Room Air 03/26/22 07:37 36.4 C L 65 18 131/87 96 Room Air Laboratory Results Laboratory Results - last 24 hr 03/26/22 06:25 PT 14.2 H INR 1.4 H PG Care Time/CCT Total # of Minutes Spent Total Time Spent with Patient: Total time spent is greater than 50% in coordination of care (as documented) at patient's floor/unit and/or counseling patient: Coding Level of Care Code 42759 Subseq Hosp Care Lvl 2 Diagnoses Acute deep vein thrombosis of both lower extremities I82.403 Cognitive decline R41.89 H/O astrocytoma Z85.841 Seizure disorder G40.909 Hyperlipidemia E78.5 GERD (gastroesophageal reflux disease) K21.9 IVC thrombosis I82.220
[2022-03-26] MEDS: WARFARIN SOD 10 MG TAB PO SCH (16:39)
[2022-03-26] MEDS: FAMOTIDINE 40 MG TABLET PO SCH (21:16)
[2022-03-27] MEDS: ACETAMINOPHEN 500 MG TAB PO SCH ×3 (06:20→21:07)
[2022-03-27 06:33] LABS: INR 1.4 (0.9-1.1); Prothrombin Time 14.3 Seconds (9.0-12.0)
[2022-03-27] MEDS: LAMOTRIGINE 200 MG PO SCH ×2 (08:22→21:05)
[2022-03-27] MEDS: SIMVASTATIN 40 MG TAB PO SCH (08:23)
[2022-03-27] MEDS: PANTOprazole 40 MG TAB PO SCH (08:23)
[2022-03-27] MEDS: PSYLLIUM or GUAR GUM FIBER POWDER PACKET PO SCH (08:23)
[2022-03-27] MEDS: LAMOTRIGINE 100 MG PO SCH ×2 (08:23→21:04)
[2022-03-27] MEDS: ENOXAPARIN 100 MG/1ML SYR SQ SCH ×2 (08:24→21:01)
[2022-03-27] MEDS: LACOSAMIDE 50 MG TABLET PO SCH ×2 (08:35→21:06)
--- NOTE | 2022-03-27 16:01 | Hospitalist Progress Note ---
Date of Service March 27, 2022 Assessment & Plan (1) Acute deep vein thrombosis of both lower extremities: Plan: See prior notes, extensive discussion with neurosurgerylow risk of anticoagulation; After extensive prior discussion by prior treating team on Coumadin so that it can be reversed were there to be intracranial bleed; will not alter course Of note, following first DVT was on anticoagulation and about 3 to 4 months later did have bleeding INR stubborn; drug interactions playing a big roleno change today; I am being cautious; still worry about overshooting (2) Cognitive decline: Plan: Longstanding but according to the somewhat abrupt/worsening since about a month; per neurosurgery could be progressive radiation effect; per discussion with his neurosurgeon, ventricular dilatation is chronic. 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 no intervention at present later consider stenting after about 3 months and reimaging; vascular surgery follow-up Plan Awaiting reasonable stability of INR Admission and Anticipated Discharge Date Admission Date: March 17, 2022 Subjective Follow-up of original presentation with lower extremity pain and related ambulatory dysfunctionoverall better; no new complaints Physical Exam Physical Exam: Constitutional and general: No acute distress, looks biologic age Head and face: No puffiness, atraumatic Eyes: No scleral icterus, extraocular movements normal Neck: Supple, no JVD Musculoskeletal: No acute joint swelling, no bony abnormalities Skin/dermatologic/integument: No rash, no purpura Hematologic and lymphatic: pallor +, no petechia Gastrointestinal/abdomen: Nondistended, soft, nonacute Neurologic: Cranial nerves intact, nonfocal; cognitive deficit apparent Psychiatry: Awake, alert, pleasant, communicative Cardiovascular: Heart rhythm regular, no rub, no murmur, no gallop Respiratory: Chest movements equal, no use of accessory muscles, no adventitious sounds Extremities: Bilateral edema with stasis changes Results & Data Results & Data ([facility]) Vital Signs (Past 12 Hours) Vital Signs Temp Pulse Resp BP Pulse Ox O2 Del Method 03/27/22 15:24 36.8 C 76 20 137/88 98 Room Air 03/27/22 07:34 36.4 C L 80 18 129/87 97 Room Air Laboratory Results Laboratory Results - last 24 hr 03/27/22 06:12 PT 14.3 H INR 1.4 H PG Care Time/CCT Total # of Minutes Spent Total Time Spent with Patient: Total time spent is greater than 50% in coordination of care (as documented) at patient's floor/unit and/or counseling patient: Coding Level of Care Code 74651 Subseq Hosp Care Lvl 2 Diagnoses Acute deep vein thrombosis of both lower extremities I82.403 Cognitive decline R41.89 H/O astrocytoma Z85.841 Seizure disorder G40.909 Hyperlipidemia E78.5 GERD (gastroesophageal reflux disease) K21.9 IVC thrombosis I82.220
[2022-03-27] MEDS: WARFARIN SOD 10 MG TAB PO SCH (16:08)
[2022-03-27] MEDS: FAMOTIDINE 40 MG TABLET PO SCH (21:05)
[2022-03-28] MEDS: ACETAMINOPHEN 500 MG TAB PO SCH ×3 (05:53→21:32)
[2022-03-28 06:35] LABS: INR 1.4 (0.9-1.1)
[2022-03-28 07:15] LABS: Chol HDL Ratio 5.7 (0-5)
[2022-03-28] MEDS: SIMVASTATIN 40 MG TAB PO SCH (08:42)
[2022-03-28] MEDS: PANTOprazole 40 MG TAB PO SCH (08:42)
[2022-03-28] MEDS: LAMOTRIGINE 200 MG PO SCH ×2 (08:43→21:17)
[2022-03-28] MEDS: PSYLLIUM or GUAR GUM FIBER POWDER PACKET PO SCH (08:43)
[2022-03-28] MEDS: LAMOTRIGINE 100 MG PO SCH ×2 (08:43→21:16)
[2022-03-28] MEDS: ENOXAPARIN 100 MG/1ML SYR SQ SCH ×2 (08:44→21:16)
[2022-03-28] MEDS: LACOSAMIDE 50 MG TABLET PO SCH ×2 (09:09→21:16)
--- NOTE | 2022-03-28 16:54 | Hospitalist Progress Note ---
Date of Service March 28, 2022 Assessment & Plan (1) Acute deep vein thrombosis of both lower extremities: Plan: See prior notes, extensive discussion with neurosurgerylow risk of anticoagulation; After extensive prior discussion by prior treating team on Coumadin so that it can be reversed were there to be intracranial bleed; will not alter course Of note, following first DVT was on anticoagulation and about 3 to 4 months later did have bleeding INR stubborn; drug interactions playing a big rolepharmacy anticoagulation team communicated yesterday to increase Coumadin dose to 15 mg, done today; I am still cautious about overshooting but INR has remained static (2) Cognitive decline: Plan: Longstanding but according to the somewhat abrupt/worsening since about a month; per neurosurgery could be progressive radiation effect; per discussion with his neurosurgeon, ventricular dilatation is chronic. 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; per current discussion during this admission with [facility] [place] and [facility] no intervention at present later consider stenting after about 3 months and reimaging; vascular surgery follow-up Plan Awaiting reasonable stability of INR Admission and Anticipated Discharge Date Admission Date: March 17, 2022 Subjective Follow-up of original presentation with leg pain, ambulatory dysfunction, detected to have DVTno new issues; doing well clinically Physical Exam Physical Exam: Constitutional and general: No acute distress, looks biologic age Head and face: No puffiness, atraumatic Eyes: No scleral icterus, extraocular movements normal Neck: Supple, no JVD Musculoskeletal: No acute joint swelling, no bony abnormalities Skin/dermatologic/integument: No rash, no purpura Hematologic and lymphatic: pallor +, no petechia Gastrointestinal/abdomen: Nondistended, soft, nonacute Neurologic: Cranial nerves intact, nonfocal; cognitive deficit apparent Psychiatry: Awake, alert, pleasant, communicative Cardiovascular: Heart rhythm regular, no rub, no murmur, no gallop Respiratory: Chest movements equal, no use of accessory muscles, no adventitious sounds Extremities: Bilateral edema with stasis changes Results & Data Results & Data ([facility]) Vital Signs (Past 12 Hours) Vital Signs Temp Pulse Resp BP BP Pulse Ox O2 Del Method 03/28/22 15:47 36.4 C L 56 L 14 134/81 98 Room Air 03/28/22 07:45 36.4 C L 63 16 123/81 100 Room Air Laboratory Results Laboratory Results - last 24 hr 03/28/22 03/28/22 05:43 05:43 PT 15.0 H INR 1.4 H Triglycerides 152 H Cholesterol 170 LDL Cholesterol, Calc 110 VLDL Cholesterol, Calc 30 HDL Cholesterol 30 Cholesterol/HDL Ratio 5.7 H PG Care Time/CCT Total # of Minutes Spent Total Time Spent with Patient: Total time spent is greater than 50% in coordination of care (as documented) at patient's floor/unit and/or counseling patient: Coding Level of Care Code 06971 Subseq Hosp Care Lvl 2 Diagnoses Acute deep vein thrombosis of both lower extremities I82.403 Cognitive decline R41.89 H/O astrocytoma Z85.841 Seizure disorder G40.909 Hyperlipidemia E78.5 GERD (gastroesophageal reflux disease) K21.9 IVC thrombosis I82.220
[2022-03-28] MEDS: WARFARIN SOD 7.5 MG TAB PO SCH (17:05)
[2022-03-28] MEDS: FAMOTIDINE 40 MG TABLET PO SCH (21:16)
[2022-03-29] MEDS: ACETAMINOPHEN 500 MG TAB PO SCH ×3 (06:25→21:01)
[2022-03-29 07:57] LABS: INR 1.6 (0.9-1.1); Prothrombin Time 16.4 Seconds (9.0-12.0)
[2022-03-29] MEDS ORDERED: LAMOTRIGINE 100 MG PO SCH ×2 (08:00→12:00)
[2022-03-29] MEDS: ATORVASTATIN 40 MG TAB PO SCH (09:17)
[2022-03-29] MEDS: PANTOprazole 40 MG TAB PO SCH (09:17)
[2022-03-29] MEDS: ENOXAPARIN 100 MG/1ML SYR SQ SCH ×2 (09:18→19:59)
[2022-03-29] MEDS: PSYLLIUM or GUAR GUM FIBER POWDER PACKET PO SCH (09:18)
[2022-03-29] MEDS: LAMOTRIGINE 100 MG PO SCH ×2 (10:01→19:58)
[2022-03-29] MEDS: LACOSAMIDE 50 MG TABLET PO SCH ×2 (10:01→21:01)
[2022-03-29] MEDS: LAMOTRIGINE 200 MG PO SCH ×2 (10:01→19:59)
[2022-03-29] MEDS: WARFARIN SOD 7.5 MG TAB PO SCH (17:00)
--- NOTE | 2022-03-29 17:02 | Hospitalist Progress Note ---
Date of Service March 29, 2022 Assessment & Plan (1) Acute deep vein thrombosis of both lower extremities: Plan: See prior notes, extensive discussion with neurosurgerylow risk of anticoagulation; After extensive prior discussion by prior treating team on Coumadin so that it can be reversed were there to be intracranial bleed; will not alter course Of note, following first DVT was on anticoagulation and about 3 to 4 months later did have bleeding INR stubborn; drug interactions playing a big rolepharmacy anticoagulation team communicated to increase Coumadin dose to 15 mg and on same dose currently since 03-28-2022; I still worry about overshooting (2) Cognitive decline: Plan: Longstanding but according to the somewhat abrupt/worsening since about a month; per neurosurgery could be progressive radiation effect; per discussion with his neurosurgeon, ventricular dilatation is chronic. 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; per current discussion during this admission with [facility] [place] and [facility] no intervention at present later consider stenting after about 3 months and reimaging; vascular surgery follow-up Plan Awaiting reasonable stability of INR Admission and Anticipated Discharge Date Admission Date: March 17, 2022 Subjective Follow-up of original presentation with leg pain, ambulatory dysfunction, detected to have DVTno new issues; doing well clinically Physical Exam Physical Exam: Constitutional and general: No acute distress, looks biologic age Head and face: No puffiness, atraumatic Eyes: No scleral icterus, extraocular movements normal Neck: Supple, no JVD Musculoskeletal: No acute joint swelling, no bony abnormalities Skin/dermatologic/integument: No rash, no purpura Hematologic and lymphatic: pallor +, no petechia Gastrointestinal/abdomen: Nondistended, soft, nonacute Neurologic: Cranial nerves intact, nonfocal; cognitive deficit apparent Psychiatry: Awake, alert, pleasant, communicative Cardiovascular: Heart rhythm regular, no rub, no murmur, no gallop Respiratory: Chest movements equal, no use of accessory muscles, no adventitious sounds Extremities: Bilateral edema with stasis changes Results & Data Results & Data ([facility]) Vital Signs (Past 12 Hours) Vital Signs Temp Pulse Resp BP Pulse Ox O2 Del Method 03/29/22 07:11 36.3 C L 57 L 16 125/88 100 Room Air Laboratory Results Laboratory Results - last 24 hr 03/29/22 07:24 PT 16.4 H INR 1.6 H PG Care Time/CCT Total # of Minutes Spent Total Time Spent with Patient: Total time spent is greater than 50% in coordination of care (as documented) at patient's floor/unit and/or counseling patient: Coding Level of Care Code 05186 Subseq Hosp Care Lvl 2 Diagnoses Acute deep vein thrombosis of both lower extremities I82.403 Cognitive decline R41.89 H/O astrocytoma Z85.841 Seizure disorder G40.909 Hyperlipidemia E78.5 GERD (gastroesophageal reflux disease) K21.9 IVC thrombosis I82.220
[2022-03-29] MEDS: FAMOTIDINE 40 MG TABLET PO SCH (20:01)
[2022-03-30] MEDS: ACETAMINOPHEN 500 MG TAB PO SCH ×3 (06:34→21:05)
[2022-03-30 07:38] LABS: INR 2.1 (0.9-1.1); Prothrombin Time 21.2 Seconds (9.0-12.0)
[2022-03-30] MEDS: ENOXAPARIN 100 MG/1ML SYR SQ SCH (08:10)
[2022-03-30] MEDS: LAMOTRIGINE 200 MG PO SCH ×2 (09:28→21:04)
[2022-03-30] MEDS: ATORVASTATIN 40 MG TAB PO SCH (09:28)
[2022-03-30] MEDS: LAMOTRIGINE 100 MG PO SCH ×2 (09:28→21:04)
[2022-03-30] MEDS: PANTOprazole 40 MG TAB PO SCH (09:32)
[2022-03-30] MEDS: PSYLLIUM or GUAR GUM FIBER POWDER PACKET PO SCH (09:34)
[2022-03-30] MEDS: LACOSAMIDE 50 MG TABLET PO SCH ×2 (09:43→21:08)
--- NOTE | 2022-03-30 14:08 | Hospitalist Progress Note ---
Date of Service March 30, 2022 Assessment & Plan (1) Acute deep vein thrombosis of both lower extremities: Plan: See prior notes, extensive discussion with neurosurgerylow risk of anticoagulation; After extensive prior discussion by prior treating team on Coumadin so that it can be reversed were there to be intracranial bleed; will not alter course Of note, following first DVT was on anticoagulation and about 3 to 4 months later did have bleeding INR now therapeutic but somewhat rapidly; it is likely it was just taking time for the 10 mg dose; INR started going up immediately the day after 15 mg dose instituted 2 days ago; as noted before I worry about overshooting; I cut back the dose to 12.5 mg and observe for 1 more day; stopped enoxaparin As far as the DVT and clotted IVC filter extensive discussion with [facility] [place] [facility]; he should follow-up with his vascular surgeon at [facility] Dr. Cantor (2) Cognitive decline: Plan: Longstanding but according to the somewhat abrupt/worsening since about a month; per neurosurgery could be progressive radiation effect; per discussion with his neurosurgeon, ventricular dilatation is chronic. - Neurology input noted and appreciated; agree, subclinical seizure seems less likely Anticonvulsants adjusted per neurology recommendations At present outpatient follow-up with neurology and neurosurgery (3) H/O astrocytoma: Plan: Neurosurgery follow-up (4) Seizure disorder: Plan: as above (5) Hyperlipidemia: Plan: LDL more than 100switched to atorvastatin (6) GERD (gastroesophageal reflux disease): Plan: During the course had some symptomsPPI added (7) IVC thrombosis: Plan: See above -no intervention at present later consider stenting after about 3 months and reimaging; vascular surgery [id number] with his vascular surgeon at [facility] Plan Plan was for rehab but has been doing better and denied at [facility]; would touch base with case management Admission and Anticipated Discharge Date Admission Date: March 17, 2022 Subjective Follow-up of original presentation with leg pain, ambulatory dysfunction, detected to have DVTno new issues; doing well clinically Physical Exam Physical Exam: Constitutional and general: No acute distress, looks biologic age Head and face: No puffiness, atraumatic Eyes: No scleral icterus, extraocular movements normal Neck: Supple, no JVD Musculoskeletal: No acute joint swelling, no bony abnormalities Skin/dermatologic/integument: No rash, no purpura Hematologic and lymphatic: pallor +, no petechia Gastrointestinal/abdomen: Nondistended, soft, nonacute Neurologic: Cranial nerves intact, nonfocal; cognitive deficit apparent Psychiatry: Awake, alert, pleasant, communicative Cardiovascular: Heart rhythm regular, no rub, no murmur, no gallop Respiratory: Chest movements equal, no use of accessory muscles, no adventitious sounds Extremities: Bilateral edema with stasis changes Results & Data Results & Data ([facility]) Vital Signs (Past 12 Hours) Vital Signs Temp Pulse Resp BP Pulse Ox O2 Del Method 03/30/22 07:35 36.8 C 67 16 123/84 100 Room Air Laboratory Results Laboratory Results - last 24 hr 03/30/22 07:09 PT 21.2 H INR 2.1 H PG Care Time/CCT Total # of Minutes Spent Total Time Spent with Patient: Total time spent is greater than 50% in coordination of care (as documented) at patient's floor/unit and/or counseling patient: Coding Level of Care Code 36043 Subseq Hosp Care Lvl 2 Diagnoses Acute deep vein thrombosis of both lower extremities I82.403 Cognitive decline R41.89 H/O astrocytoma Z85.841 Seizure disorder G40.909 Hyperlipidemia E78.5 GERD (gastroesophageal reflux disease) K21.9 IVC thrombosis I82.220
[2022-03-30] MEDS ORDERED: WARFARIN SOD 2.5 MG TAB PO SCH (16:00)
[2022-03-30] MEDS: FAMOTIDINE 40 MG TABLET PO SCH (21:08)
[2022-03-31] MEDS: ACETAMINOPHEN 500 MG TAB PO SCH ×2 (05:49→13:53)
[2022-03-31 06:46] LABS: INR 2.1 (0.9-1.1); Prothrombin Time 21.4 Seconds (9.0-12.0)
[2022-03-31] MEDS: LAMOTRIGINE 100 MG PO SCH (08:30)
[2022-03-31] MEDS: LAMOTRIGINE 200 MG PO SCH (08:30)
[2022-03-31] MEDS: ATORVASTATIN 40 MG TAB PO SCH (08:31)
[2022-03-31] MEDS: PANTOprazole 40 MG TAB PO SCH (08:31)
[2022-03-31] MEDS: PSYLLIUM or GUAR GUM FIBER POWDER PACKET PO SCH (08:32)
[2022-03-31] MEDS: LACOSAMIDE 50 MG TABLET PO SCH (08:53)
--- NOTE | 2022-03-31 12:56 | Discharge Summary ---
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 He had an IVC filter placed in 1997 due to lower extremity DVTs that occurred associated with brain tumor. He was advised at that time to not undergo any coagulation due to concerns regarding intracranial bleeding that might occur following his brain surgeries and placement of shunt. Over the past 24 hours patient is noted significant lower extremity discomfort, pain and cramping, and swelling slightly worse than usual. He underwent venous Dopplers in the emergency department which showed acute on chronic DVTs. CT of abdomen the pelvis, which showed an IVC filter, with complete thrombosis of the lower IVC, and occlusion of the left common and internal iliac veins. CTA chest was negative for PE Principal Diagnosis 1. Bilateral DVTs 2. IVC thrombus 3. Seizure disorder Discharge Data Allergies Allergy/AdvReac Type Severity Reaction Status Date / Time Iodinated Contrast Media Allergy Unknown nausea and Verified 03/15/22 00:08 vomiting No Known Drug Allergies Allergy Unknown Verified 03/15/22 00:08 Consultations 03/14/22 23:28 ED Decision to Admit Stat 03/15/22 18:17 Radiology Transfer Of Images Stat 03/16/22 09:45 Consult Neurology Routine 03/16/22 11:06 Consult Vascular Surgery Routine 03/31/22 12:29 Consult Anticoagulation Clinic Routine Ordered Studies 03/14/22 18:16 US venous doppler LE BI Stat 03/14/22 18:19 CT head/brain wo con Stat 03/14/22 23:42 CT angio chest PE protocol Urgent 03/15/22 00:14 CT Abd and Pelvis [CT abd pelvis IV con only] Urgent 03/20/22 09:36 US soft tissue groin Routine Hospital Course (1) Acute deep vein thrombosis of both lower extremities: Acute deep vein thrombosis of both lower extremities in the presence of previous intra vena cava filter - Acute on chronic DVT bilateral lower extremities/presence of IVC filter/IVC thrombosis - Filter placed in 1997 at which time related to astrocytoma he was told anticoagulation is contraindicated - Previous physician has discussed with his neurosurgeon (Dr. Patterson at [facility]), CT scan seen by himlow risk and per discussion initiated on IV heparin low-dose protocol without bolus With respect to the filter itself and surrounding thrombosis, [facility] both opined at present no treatment other than anticoagulation; at [facility], they stated after he is on anticoagulation for 6 months feasibility of creating channels or looking at options of trying to remove the filter can be consideredthey will call him Patient follows with John Cantor at [facility] At discharge fax records/reports to his office at [phone] - order placed for this Pt has some right groin pain u/s does not reveal any other irritations Was initially targeting DOAC therapy, was seen by vascular surgery who did not recommend tPA due to extreme risk but does recommend anticoagulation with 3- month follow-up to look for recannulization of thrombus. DOAC was considered, recommended to continue Coumadin for reversibility rather than pursuing DOAC Discussed with coag clinic. Given risk of bleeding with prior bleeds will maintain on heparin and bring up slowly on warfarin while observing for signs of bleeding. Given risk of bleeding for intracranial bleed, reasonable to watch with initial load over the 48 at least, follow INR velocity and then transition to warfarin. - Bridge w/ Lovenox 90 mg bid started 03/19 - Warfarin 7.5x 3 days with little change so increased to 10 mg on still subtherapeutic. Further adjustment made, now on 12.5mg daily, INR therapeutic at 2.1 x 2 days, Lovenox stopped - Pt has been doing well on current dose, will refer to Dr. Ocampo in the anticoagulation clinic for ongoing Coumadin management. INR to be drawn by home health on 04/02, results to be forwarded to AC clinic (2) Seizure disorder: Continue carbamazepine, lacosamide and lamotrigine Carbamazepine level 12.9, slightly supratherapeutic, history of carbamazepine toxicity 03/17 carbamazepine reduced to 400mg twice daily 03/17 Vimpat increased to 100 mg twice daily, Lamictal continued at current dosing (500mg BID). Appreciate neuro recs - Pt with hx of seizure c/b hemorrhage, high risk for seizure complications especially while on anticoagulation (3) IVC thrombosis: IVC filter placed 1997 due to lower extremity DVT and inability anticoagulate in the setting of intracranial bleed, had a shunt placed as well Has bilateral lower extremity DVT with chronic DVT of the abdomen and pelvis CTAA/P: Thrombosis of distal vena cava with clot extension to filter, occlusion of left common iliac vein, and both internal iliac vein CTAchest: No PE Seen by vascular surgery, case discussed with specialist as above. Recommended anticoagulation with heparin/lovneox bridge to warfarin. Patient will follow up with Dr. Cantor, his primary vascular surgeon as outpatient for further care as long as he does well and remained stable with transition to warfarin above (4) Cognitive decline: - Longstanding but according to the somewhat abrupt/worsening since about a month ; per neurosurgery could be progressive radiation effect; MRI brain pendingI department is trying to obtain written details with respect to ventriculostomy catheter; per discussion with his neurosurgeon, ventricular dilatation is chronic. - Neurology input noted and appreciated; agree, subclinical seizure seems less likely - Carbamazepine level adjustments (5) H/O astrocytoma: Follows at [facility]; continue follow-upnothing seen on CT MRI remains pending (6) Hyperlipidemia: - Continue Simvastatin (7) GERD (gastroesophageal reflux disease): - Continue Famotidine Plan Initially pt was considering rehab, however, insurance has denied both inpt rehab and SNF. He has been up ambulating in his room. At this point, pt would like to be discharged home. Spoke w/ case management, will arrange for home health who can draw INRs. He is medically and hemodynamically stable for discharge as INR is therapeutic. Advised follow up with all of his specialists, including neurology, neurosurgery, and vascular surgery. Advise pcp follow up within 1 week of discharge. Plan has been d/w Dr. Catie Nuñez who has also seen patient prior to discharge and is in agreement with the aforementioned. Total Time Total Time Spent Total Time Spent (In Minutes): >30 minutes Discharge Plan Discharge Items Patient Disposition: Home - Home Health Services Reason For Visit: MEMORY LOSS, B/L LE DVT'S Discharge Diagnosis: blood clots in legs, seizures Condition on Discharge: Fair Activity: Resume your previous activity Non-emergency contact: Primary Care Provider, Specialist and Neurologist Call non-emergency contact if: you have any medication questions and your symptoms worsen Follow-up/Referrals: Brayden Dasilva MD [Physician] - 04/15/22 11:00 am (2-4 weeks APPT WITH STEFF SEGUNDO PA-C) Kaitlin Ocampo MD, PhD [Pathologist] - 04/03/22 11:00 am (anticoagulation clinic for coumadin management) Pierre Ellis MD [Physician] - (Patient family can call my office with any questions or concerns.) Shari Alarcon DO [Primary Care Provider] - Diet: Regular Ambulatory Orders: Prothrombin Time INR (Timed) Timeframe: 3 Days Location: Determined by Patient Ordered By: Joselin Timmons Attending Provider Instructions: You were hospitalized for lower extremity pain and memory loss. You were found to have blood clots in both of your legs and your filter that sits in your inf erior vena cava (large vein that carries blood back to your heart) was found to be clogged. You were seen by the vascular surgeon who advised using a blood thinner (Coumadin) to thin out his blood. He has also been seen by neurology who made some changes to his seizure medications. Those medications changes have been made as follows: 1. Carbamazepine ER 400mg, one tablet twice (morning and evening) daily. 2. Vimpat 100mg, one tablet twice (morning and evening) daily. 3. Lamotrigine ER 250mg, two (for total of 500mg) tablets twice (morning and evening) daily. Your blood thinner levels (INR) need to stay between 2-3 to be effective. You are being discharged on Coumadin (Warfarin) 12.5mg daily. You have been given this medication at 4pm in the hospital, you can continue to take it at 4pm or move it to 5pm. Either way, stay consistent and take it at the same time each day. You will be referred to [facility]'s anticoagulation clinic and see Dr. Ocampo who will manage your Coumadin dosing. Home health will follow up with you in your home on 04/02 and they will check your blood thinner levels and send the results to Dr. Ocampo. We advise follow up with your established specialists. Follow up with neurology in 2-4 weeks. We advise follow up with your established healthcare provider (PCP) within 1 week of discharge. If you have any questions following your discharge, you may call the nonemergency number listed on your paperwork. In the event of a medical emergency, call 911. Pending Studies at Discharge: No Stand-Alone Forms: [facility], Smoking Cessation Medications and DC Order Prescriptions: New warfarin 2.5 mg tablet 2.5 mg PO DAILY Qty: 30 0RF Rx Instructions: take with 10mg tablet for total of 12.5mg daily at 4pm warfarin 10 mg tablet 10 mg PO DAILY Qty: 30 0RF Rx Instructions: Take with 2.5mg tablet for total of 12.5mg daily at 4pm carbamazepine 400 mg tablet extended release 12 hr 400 mg PO BID Qty: 60 0RF lamotrigine 250 mg tablet extended release 24hr 500 mg PO BID Qty: 120 0RF Continued simvastatin 40 mg tablet 40 mg PO QAM famotidine 40 mg tablet 40 mg PO QPM Discontinued lamotrigine 100 mg tablet extended release 24hr 100 mg PO BID Qty: 60 5RF lamotrigine 200 mg tablet extended release 24hr 400 mg PO BID 90 Days Qty: 360 0RF carbamazepine 200 mg capsule, ER multiphase 12 hr 200 mg PO BID 90 Days Qty: 180 0RF Rx Instructions: take along with 300mg capsule BID for a total of 500mg BID carbamazepine 300 mg capsule, ER multiphase 12 hr 300 mg PO BID 90 Days Qty: 180 0RF Rx Instructions: take along with 200mg capsule BID for a total of 500mg BID lacosamide [Vimpat] 50 mg tablet 50 mg PO BID Qty: 60 3RF No Action lacosamide [Vimpat] 100 mg tablet 100 mg PO BID 30 Days Qty: 60 2RF Discharge Orders: Discharge Order (Routine); Ordered 03/31/22 Ordered By: Joselin Esposito Admission Data Admit Date/Time: 03/17/22 14:51 Attending Provider: Nahun Nuñez Admit Provider: Raj Hernandez Primary Care Provider: Shari Alarcon Other Providers: [facility] ; Raj Hernandez ; Brayden Dasilva ; Pierre Ellis ; [facility] ; Tj Jarquin ; [facility] Other Interventions: Discharge Summary Assessment (RN) Last Done: 03/31/22 13:30 Supervising Physician Co-Signing Physician Notes I supervised Joselin Esposito PA-C on the care of this patient. I interviewed and examined the patient independently of her. The plan is as written in her note except for any following changes/exceptions: None Doing well today. INR stable at 2.1. Close op follow up with his surgeon at [facility] and [facility]. Coding Level of Care Code D/C DAY MANAGEMENT >30 MINS Diagnoses Acute deep vein thrombosis of both lower extremities I82.403 Seizure disorder G40.909 IVC thrombosis I82.220 Cognitive decline R41.89 H/O astrocytoma Z85.841 Hyperlipidemia E78.5 GERD (gastroesophageal reflux disease) K21.9 Home Health Attestation I certify that this patient is under my care and that I, or a physicians cleaner assistant working with me, had a face to-face encounter that meets the home health [id number] encounter requirements with this patient. The encounter with the patient was in whole, or in part, for the following medical condition, which is the primary reason for home health care (list medical condition): I certify that, based on my findings, the following services are medically necessary home health services: My clinical findings support the need for the above services because: Further, I certify that my clinical findings support that this patient is homebound (i.e. absences from home require considerable and taxing effort and are for medical reasons or gnosticist services or infrequently or of short duration when for other reasons) because: Certification for Home Health Services: Based on the above findings, I certify that this patient is confined to the home and needs intermittent retirement care, physical therapy and/or speech therapy or continues to need occupational therapy. The patient is under my care, and I have initiated the establishment of the plan of care. This patient will be followed by a physician who will periodically review the plan of care.
--- NOTE | 2022-04-08 16:43 | Coding Query ---
CODING QUERY To promote full compliance with coding requirements relating to patient care, provider participation is requested in all cases of circle shear operator uncertainty. Please assist us with the question(s) below: Coding Question(s): Pt admitted with acute/chronic DVT's ... Virgil Filter, unable to be anticoagulated . IVC thrombosis discovered. Please check below the phrase that describes the IVC thrombosis. Thanks for your help! BRIANNA Romero [facility] Physician's Response(s): The IVC thrombosis was acute The IVC thrombosis was chronic x____ Cannot Clinically determine if the IVC thrombosis was acute or chronic - I'm sorry, but I cannot determine the age of the IVC clot. Likely chronic, but not sure. Other: Please document: Principal Diagnosis: "that condition established after study, to be chiefly responsible for occasioning the admission of the patient to the hospital for care." Co-Existing Principal Diagnosis: "when two or more diagnoses equally meet the criteria for principal diagnosis as determined by the circumstances of admission, diagnostic work up, and/or therapy provided, and the Alphabetic Index, Tabular List, or another coding guideline does not provide sequencing direction, any one of the diagnoses may be sequenced first." "When the physician has documented what appears to be a current diagnosis in the body of the record, but has not included the diagnosis in the final diagnostic statement, the physician should be asked whether the diagnosis should be added." (Source Coding Clinic 2 QTR90. p3-4) TERRI
== END 2022-03-31 14:41 | disposition home health service (06) | DRG 300 ==
LOC: ED 18:03 → 2N 18:03 → SUATTDRO 03-15 02:17 → 2N 03-15 04:07 → SUATTDRO 03-17 14:51 → 3E 03-22 18:44